=== PATIENT | female | born 1935 | race Caucasian/White ===

== ENCOUNTER 2017-12-08 22:44 | Observation (INO) | payer MEDICARE, OTHER ==
[~2017-12-08] VITALS: Ht 157.5 cm; Wt 122.3 kg
[~2017-12-08 22:44] MED LIST: ALDACTONE25 MG PO; ASPIRIN EC81 MG PO; BENADRYL25 MG PO; CEFEPIME HCL2 GM INJ; CIPROFLOXACIN500 MG PO; CITALOPRAM HBR20 MG PO; COZAAR25 MG PO; COZAAR50 MG PO; DIFLUCAN150 MG PO; DILAUDID2 MG IM; DOCUSATE SODIU100 MG PO; DOXYCYCLINE HY100 MG PO; DULCOLAX5 MG PO; FENTANYL1 EACH TD; FLEET ENEMA133 ML PR; FUROSEMIDE40 MG PO; GABAPENTIN100 MG PO; GABAPENTIN300 MG PO; HIPREX1 GM PO; HYDROCODON-ACE1 EA10 PO; HYDROCODON-ACE1 EAC8 PO; INVANZ1 GM IV; IPRATROPIUM BRO15 ML NAS; KEFLEX500 MG PO; KLOR-CON 1010 MEQ PO; LANTUS SOL100 UNIT/1 SQ; LANTUS SOL100 UNIT/1 SUB-Q; LEVOTHYROXINE75 MCG PO; LORAZEPAM1 MG PO; LOSARTAN POTASS25 MG PO; METFORMIN HCL500 M1 PO; METFORMIN HCL500 MG PO; MILK OF MA400 MG/5 M PO; MULTIVITAMINS1 EAC7 PO; NORCO 5-325 TA1 EACH PO; NORVASC10 MG PO; NOVOLIN R100 UNIT/1 SUB-Q; NYSTATIN100000 UN1 PO; NYSTOP60 GM TOP; OMEPRAZOLE40 MG PO; OXYCODONE HCL5 MG PO; OXYCODONE-ACET1 EAC3 PO; OXYCONTIN10 MG PO; PERCOCET 5-3251 EACH PO; SPIRONOLACTONE25 MG PO; SPIRONOLACTONE50 MG PO; VENLAFAXINE HC150 MG PO; [UNRECOGNIZED DRUG - OTHER] VI
--- NOTE | 2017-12-09 01:38 | NUR ---
ADMIT TO CCU PER STRETCHER, ABLE TO STAND AND PIVOT FROM STRETCHER TO BED. RESP SL LABORED BUT IS ABLE TO SPEAK IN LONG SENTENCES. DOES HAVE PUFFING SOUND AFTERWARD. SATS, 91-93% ON RA AT REST. STATES FORGOT TO TAKE AM MEDS WHICH INCLUDE LASIX AND AMLODIPINE, AMONG OTHERS, STATES SHE TOOK HER PM MEDS. DOES HAVE POOR MEMORY AND DIDN'T REMEMBER WAS ON A BP MED. DID STATE SHE WAS GOING TO TALK WITH ABOUT HER MEDICATION MANAGEMENT SO THIS DOES NOT HAPPEN AGAIN. IS COMFORTABLE AT THIS TIME.
--- NOTE | 2017-12-09 02:19 | NUR ---
PT UP TO BSC TO VOID 500ML. ASSISTED WITH PERICARE. PT WITH RED PAINFUL AREAS IN PANNUS AND GROIN. PLACED NYSTATIN POWDER. PT THANKFUL.
--- NOTE | 2017-12-09 03:22 | NUR ---
UP TO BSC TO VOID. STATES BREATHING IS BETTER.
--- NOTE | 2017-12-09 05:20 | NUR ---
UP TO BSC TO VOID. LESS SOB WITH EXERTION AND STATES BREATHING IS EASIER. EDEMA IS IMPROVING IN FEET.
--- NOTE | 2017-12-09 06:56 | NUR ---
SLEEPING AT THIS TIME.
--- NOTE | 2017-12-09 08:20 | NUR ---
PT UP TO THE BEDSIDE COMMODE, VOIDED THEN UP TO THE CHAIR IN THE ROOM. CURRENTLY WATCHING TV AND BKF ORDED FOR PT. CALL LIGHT WITHIN REACH
--- NOTE | 2017-12-09 09:31 | NUR ---
DR SMITH INTO SEE PT THIS AM. NEW ORDERS RECEIVED. PT FINISHED HER BKF AND AM MEDICATIONS GIVEN AT THIS TIME. PT TALKED ON THE PHONE TO FAMILY.
--- NOTE | 2017-12-09 10:15 | NUR ---
PT BACK TO BED AFTER BEING ON THE BEDSIDE COMMODE. VOIDED CLEAR IN COLOR URINE. BACK TO BED "I WANT TO TAKE A NAP, I HAVE BEEN UP ALL NIGHT".
--- NOTE | 2017-12-09 11:07 | NUR ---
PT IN BED SLEEPING AT THIS TIME, SIDE RAILS X4 CALL LIGHT WITHIN REACH AND BED IN THE LOWEST POSITION.
--- NOTE | 2017-12-09 12:33 | NUR ---
PT AWAKEN AT THIS TIME, UP TO THE BS COMMODE AND THEN TO THE CHAIR FOR LUNCH. PT DOING WELL WITH AMBULATION, IT APPEARS THE PT IS SOB WITH THIS ACTIVITY. BUT PATIENTS FIO2 REMAINS 93% ON ROOM AIR. WILL HAVE RT WORK WITH US WHEN PT AMBULATES TO THE SHOWER IN ROOM 126.
--- NOTE | 2017-12-09 13:15 | NUR ---
PT WAS UP TO AMBULATE TO SEE HOW HER FIO2 HANDLE AMBULATION. FAMILY CAME AT THIS TIME ALSO. PT AMBULATED TO ROOM 130 AND BACK VERY SOB BUT FIO2 REMAINED IN THE LOW 90'S BUT THE HEART RATE INCREASED TO THE LOW 90'S. PT FELT VERY SOB, WITH WHEEZING. SHE HAD TO REST ON THE WAY BACK TO HER ROOM. SHE STOPED AT ROOM 129. PT WENT BACK TO THE CHAIR IN HER ROOM TO VISIT WITH FAMILY.
--- NOTE | 2017-12-09 14:14 | NUR ---
TALKED WITH [id number] IN THE ROOM WITH PT AND EXPLAINED THAT IT IS NOT A LUNG ISSUE BUT MORE OF A HEART ISSUE WITH HER AMBULATION. EXPLAINED THAT SHE IS VERY DECONDITIONED AT THIS TIME. EXPLAINED THAT THIS HEAVY MACHINERY OPERATOR WILL LET DR SMITH KNOW HOW SHE DID AND RT WILL LET HIM KNOW ALSO.
--- NOTE | 2017-12-09 15:22 | NUR ---
PT AMBULATED TO ROOM 126 SHOWER AT THIS TIME, DID WELL WITH THIS ACTIVITY. THEN AMBULATED BACK TO HER ROOM AFTER THE SHOWER. PT ABD PANIS HAS VERY STRONG ODOR AND UNDER THE PANIS IS VERY BRIGHT RED. THIS AREA DRYED WELL AND THEN NYSTATIN POWER PLACED ORDERED.
--- NOTE | 2017-12-09 15:34 | NUR ---
FAMILY INTO SEE PT AT THIS TIME. PT BACK IN BED TALKING WITH FAMILY. DINNER ORDER TAKEN
--- NOTE | 2017-12-09 17:20 | NUR ---
PT REMAINS IN BED AT THIS TIME WATCHING THE OLYMPICS AT THIS TIME AND AT TIMES SHE IS NAPPING.
--- NOTE | 2017-12-09 17:46 | NUR ---
PT UP TO THE BEDSIDE COMMODE VOID THEN UP TO THE CHAIR FOR HER DINNER. PT CONTIOUES TO HAVE WHEEZING WITH ACTIVITY, BUT FIO2 REMAINS ABOVE 90%. PT IS CURRENTLY ENJOYING DINNER AND CONTIOUES TO WATCH THE OLYMPICS.
--- NOTE | 2017-12-09 18:28 | NUR ---
PT REMAINS UP IN THE CHAIR AT THIS TIME. FINISHED DINNER AND WATCHING TV.
--- NOTE | 2017-12-09 20:04 | NUR ---
RESTING IN BED, NO C/O.
--- NOTE | 2017-12-09 22:39 | NUR ---
IV DC'D EARLIER IN SHIFT, [address] [place] [employer] LAW CLERK ATTEMPTED IV START, [employer] [employer] LAW CLERK SUCCESSFUL IN LEFT HAND WITH A 24 GAUGE. PT ASSISTED TO THE BSC. INCREASE SOB ON EXERTION WITH SATS IN THE MID 80'S ON EXERTION. ONCE BACK TO BED, SATS INCREASED TO 92-94. PANNIS WITH REDDNESS, WIPED, DRIED AND APPLIED NYSTAT POWDER, AND CLOTHS UNDER FOLDS TO PREVENT SKIN TO SKIN. CALL LIGHT WITHIN REACH, DENIES NEEDS AT THIS TIME.
--- NOTE | 2017-12-10 00:01 | EKG ---
[facility] [address] [facility] [address] [address] [place] [address] Signed Normal sinus rhythm Left axis deviation Septal infarct , age undetermined Possible Lateral infarct , age undetermined Inferior infarct , age undetermined Abnormal ECG No previous ECGs available Confirmed by АННА SMITH MD ([id number]) on 12/10/2017 12:01:33 AM Electronically Signed By: АННА SMITH MD 12/10/17 0001 PATIENT NAME: ABEL PANDA Electrocardiogram DATE OF : 33 PHYSICIAN: АННА SMITH MD REPORT #: [id number] REPORT IS CONFIDENTIAL AND NOT TO BE RELEASED WITHOUT AUTHORIZATION
--- NOTE | 2017-12-10 00:15 | NUR ---
DR SMITH CALLED RE ELEVATED BP. ORDER RECIEVED. PT HAD ASKED IF SHE HAD RECIEVED HER OXYCODONE EARLIER FOR LEGS, HAD NOT. STATED CAN'T KEEP LEGS STILL AND RATES DISCOMFORT 05/31. OXYCODONE 5MG PO GIVEN.
--- NOTE | 2017-12-10 00:40 | NUR ---
WATCHING TV. GIVEN LABETOLOL 100MG PO.
--- NOTE | 2017-12-10 02:40 | NUR ---
SLEEPING OFF AND ON. NO CHANGE.
--- NOTE | 2017-12-10 03:50 | NUR ---
AWAKE, STATES CAN'T SLEEP, HAD TOLD ME LAST NIGHT THAT SHE DOESN'T SLEEP WELL AT HOME. NO SPEC C/O. DIFFICULTY FLUSHING IV, DRSG REDRESSED AND HAS SL KINK AT ENTRY SITE. FLUSHED AND REDRESSED. GIVEN WARM BLANKET. PT ENCOURAGED WHEN INFORMED SHE HAD LOST WEIGHT.
--- NOTE | 2017-12-10 06:30 | NUR ---
WOKE PT UP TO USE THE BATHROOM. SOB ON EXERTION, ASSISTED TO BED, PT ABLE TO PUT HER LEGS INTO BED. CALL LIGHT WITHIN REACH. DENIES NEEDS AT THIS TIME.
--- NOTE | 2017-12-10 06:37 | NUR ---
ADDENDUM, SATS DID DEC TO 87% WITH ACIVITY, BACK TO92% WITHIN MINUTES. FELL BACK TO SLEEP QUICKLY. AWAKENED FOR MED AND THEN BACK TO SLEEP. PT HAD TOLD ME EARLIER THAT SHE FREQ STAYS UP MUCH OF NIGHT AND THEN FALLS TO SLEEP IN THE AM.
--- NOTE | 2017-12-10 07:43 | NUR ---
PATIENT AWAKE UPON INITIAL ASSESSMENT, LYING IN BED. PT STATES SHE IS "SLEEPY" BUT OVERALL FEELING OKAY. VITALS AND ASSESSMENT DONE AT THIS TIME.
--- NOTE | 2017-12-10 09:56 | NUR ---
CARDIOVASCULAR LAB DIRECTOR IN ROOM PERFORMING ECHO. PT 1 PERSON ASSIST BACK TO BED WITH CARDIOVASCULAR LAB DIRECTOR. HEART RATE REMAINS IN THE 50s. CONTINUE TO MONITOR.
[2017-12-10] MEDS ORDERED: COZAAR50 MG PO (10:19)
[2017-12-10] MEDS ORDERED: LABETALOL HCL100 MG PO (10:21)
--- NOTE | 2017-12-10 11:02 | NUR ---
PATIENT GIVEN BED BATH. PT HAS LARGE AMOUNTS OF FOUL SMELLING YEAST LIKE SUBSTANCE BETWEEN HER FOLDS. PT CLEANED WELL UNDER PANNUS AND FOLDS, AND THEN NYSTATIN POWDER RE-APPLIED. PT WAITING ON HER AND DAUGHTER TO ARRIVE FOR HER CLEAN CLOTHING, AND FOR DISCHARGE INSTRUCTIONS. PT AMBULATES TO BATHROOM AND HAS A LARGE BM. PT NOW RESTING IN CHAIR AT THIS TIME.
[2017-12-10] MEDS ORDERED: NYSTOP60 GM TOP (11:04)
--- NOTE | 2017-12-10 11:36 | NUR ---
PT SITTING IN CHAIR, PLEASANT AND ALERT. SHE MENTIONED THAT SHE IS MUCH IMPROVED, AND HOPES TO BE DC'D TODAY. EXTENDED A BLESSING AND WILL FOLLOW NEEDED
--- NOTE | 2017-12-12 11:01 | NUR ---
12/12/17 Home visit with patient, Geo, and daughter Sarah. Provided patient with current list of providers in our [place] area who are accepting new patient's. Discussed possibly Dr. Mtz as he was the attending hospitalist while patient was in hospital and she really liked him. Chelsea also looked at possibly Dr. Goldstein as an option. She did not want Dr. Skaggs. Chelsea and Geo will review list for a few days and make a decision then for new PCP as current PCP Dr. Up is retiring in March. At that point I will get her and Geo an IWONA to sign and start the process. Also discussed Medication reminder system. Currently patient's Geo is giving Chelsea her medications twice daily but no reminder system in place. I gave patient a weekly qd medication box to prefill that distinguished a.m medications and p.m. medications. Also suggested some type of alarm system to help as a reminder to take medications and at regular times each day. Chelsea has a F/U appointment with Dr. Up on 12/18 and suggested that she ask if she should be taking medications before she eats or after. Patient stated she had never considered asking that question but will at her next appointment. I did offer to met her at her next appointment if she would like. She will let me know if that is something she is interested in.
--- NOTE | 2017-12-17 14:42 | NUR ---
Rec'd phone call from patient's Geo who stated him and Chelsea would like to see if Dr. Mtz would accept them as new patient's once Dr. Up retires in March. Presented them with a IWONA which they signed. I took a copy of the IWONA and mailed it to them and turned in the signed IWONA to [facility] for the disclosure of health information.
== END 2017-12-10 12:00 | disposition home or self-care (01) ==
LOC: ED 22:44 → CCU 22:46
PROVIDERS: ADMIT Internal Medicine
DX: I16.1 Hypertensive emergency (principal); I13.0 Hypertensive heart and chronic kidney disease with heart failure and stage 1 through stage 4 chronic kidney disease, or unspecified chronic kidney disease; N18.3 Chronic kidney disease, stage 3 (moderate); I50.32 Chronic diastolic (congestive) heart failure; E11.22 Type 2 diabetes mellitus with diabetic chronic kidney disease; E03.9 Hypothyroidism, unspecified; E66.9 Obesity, unspecified; F39 Unspecified mood [affective] disorder; G89.4 Chronic pain syndrome; F11.20 Opioid dependence, uncomplicated; Z68.43 Body mass index [BMI] 50.0-59.9, adult; Z88.2 Allergy status to sulfonamides; Z79.84 Long term (current) use of oral hypoglycemic drugs; Z79.82 Long term (current) use of aspirin; Z79.899 Other long term (current) drug therapy
CPT/HCPCS: 71045; 80053; 83735; 83880; 84484; 85025; 93005; 93010; 93306; 96372; 96374; 96375; 99285; G0378; J1650

== ENCOUNTER 2017-12-23 12:00 | Emergency (ER) | payer MEDICARE, OTHER ==
[~2017-12-23] VITALS: Ht 157.5 cm; Wt 127.5 kg
[~2017-12-23 12:00] MED LIST changes: +LABETALOL HCL100 MG PO
--- NOTE | 2017-12-23 14:38 | EKG ---
[facility] [address] [place] [address] Signed Sinus bradycardia Left axis deviation Inferior infarct (cited on or before 08-DEC-2017) Anterolateral infarct (cited on or before 08-DEC-2017) Abnormal ECG When compared with ECG of 08-DEC-2017 23:06, QRS duration has increased Questionable change in initial forces of Lateral leads Non-specific change in ST segment in Lateral leads Confirmed by АННА SMITH MD ([id number]) on 12/23/2017 2:37:47 PM Electronically Signed By: АННА SMITH MD 12/23/17 1438 PATIENT NAME: ABEL PANDA Electrocardiogram DATE OF : 33 PHYSICIAN: АННА SMITH MD REPORT #: [id number] REPORT IS CONFIDENTIAL AND NOT TO BE RELEASED WITHOUT AUTHORIZATION
== END 2017-12-23 15:52 | disposition short-term general hospital (02) ==
LOC: ED 12:00
DX: I21.4 Non-ST elevation (NSTEMI) myocardial infarction (principal); I11.0 Hypertensive heart disease with heart failure; I50.9 Heart failure, unspecified; E11.9 Type 2 diabetes mellitus without complications; E66.9 Obesity, unspecified; E03.9 Hypothyroidism, unspecified; F32.9 Major depressive disorder, single episode, unspecified; F41.9 Anxiety disorder, unspecified; Z88.2 Allergy status to sulfonamides; Z79.899 Other long term (current) drug therapy
CPT/HCPCS: 71045; 80053; 83735; 83880; 84484; 85025; 85379; 93005; 93010; 96372; 96374; 99285; J1650

== ENCOUNTER 2018-01-23 10:46 | Emergency (ER) | payer MEDICARE, OTHER ==
[~2018-01-23] VITALS: Ht 157.5 cm; Wt 126.5 kg
[2018-01-23] MEDS ORDERED: ASPIRIN81 MG PO (11:08)
[2018-01-23] MEDS ORDERED: PREDNISONE20 MG PO (14:30)
--- NOTE | 2018-01-24 16:49 | EKG ---
[facility] [address] [facility] [place] [address] Signed Sinus bradycardia with 1st degree AV block Left axis deviation Inferior infarct (cited on or before 08-DEC-2017) Anterolateral infarct (cited on or before 08-DEC-2017) Abnormal ECG When compared with ECG of 23-DEC-2017 12:14, Questionable change in initial forces of Inferior leads No significant change was found Confirmed by АННА SMITH MD ([id number]) on 01/24/2018 4:49:25 PM Electronically Signed By: АННА SMITH MD 01/24/18 1649 PATIENT NAME: ABEL PANDA Electrocardiogram DATE OF : 33 PHYSICIAN: АННА SMITH MD REPORT #: [id number] REPORT IS CONFIDENTIAL AND NOT TO BE RELEASED WITHOUT AUTHORIZATION
== END 2018-01-23 14:45 | disposition home or self-care (01) ==
LOC: ED 10:46
DX: J44.1 Chronic obstructive pulmonary disease with (acute) exacerbation (principal); I11.0 Hypertensive heart disease with heart failure; I50.9 Heart failure, unspecified; E11.9 Type 2 diabetes mellitus without complications; E03.9 Hypothyroidism, unspecified; F41.9 Anxiety disorder, unspecified; F32.9 Major depressive disorder, single episode, unspecified; E66.9 Obesity, unspecified; Z88.2 Allergy status to sulfonamides; Z79.899 Other long term (current) drug therapy; Z79.82 Long term (current) use of aspirin
CPT/HCPCS: 36415; 71046; 80053; 81001; 83605; 83880; 84484; 85025; 93005; 93010; 94640; 96374; 99283; J2930

== ENCOUNTER 2018-07-05 16:46 | Emergency (ER) | payer MEDICARE, OTHER ==
[~2018-07-05] VITALS: Ht 157.5 cm; Wt 113.4 kg
[~2018-07-05 16:46] MED LIST changes: +ASPIRIN81 MG PO; +PREDNISONE20 MG PO
[2018-07-05] MEDS ORDERED: DIFLUCAN150 MG PO (17:44)
== END 2018-07-05 17:50 | disposition home or self-care (01) ==
LOC: ED 16:46
DX: B37.2 Candidiasis of skin and nail (principal); L30.9 Dermatitis, unspecified; I10 Essential (primary) hypertension; E11.9 Type 2 diabetes mellitus without complications; Z88.2 Allergy status to sulfonamides; Z79.899 Other long term (current) drug therapy
CPT/HCPCS: 99283

== ENCOUNTER 2018-10-27 13:01 | Inpatient (IN) | payer MEDICARE, OTHER ==
[~2018-10-27] VITALS: Ht 157.5 cm; Wt 109.9 kg
[~2018-10-27 13:01] MED LIST changes: +ALLEGRA ALLERG180 MG PO; +METHYLPREDNISOLO4 M1 PO
--- NOTE | 2018-10-27 13:25 | NUR ---
PT ARRIVED TO FLOOR VIA WHEEL CHAIR. IV STARTED IN LEFT HAND. LABS DRAWN STANDING WEIGHT WAS 245.8. ASSESSMENT DONE. LUNGS CLEAR WITH SMALL AMOUNT OF FINE CRACKLE IN RLL. HEART SOUNDS REGULAR. LEGS KRIS IN COLOR, TAUGHT, AND WHEEPING. +2 PITTING EDEMA. VSS.
[2018-10-27] MEDS ORDERED: FUROSEMIDE80 MG PO (14:42)
[2018-10-27] MEDS ORDERED: LEVOTHYROXINE150 MCG PO (14:44)
[2018-10-27] MEDS ORDERED: LOSARTAN POTASS50 MG PO (14:45)
[2018-10-27] MEDS ORDERED: REPAGLINIDE2 MG PO (14:48)
[2018-10-27] MEDS ORDERED: NORCO 5-325 TA1 EACH PO (14:49)
[2018-10-27] MEDS ORDERED: GLIPIZIDE10 MG PO (14:50)
[2018-10-27] MEDS ORDERED: LANTUS SOL100 UNIT/1 SUB-Q (14:53)
[2018-10-27] MEDS ORDERED: LIDOCAINE-PRILO30 GM TOP (14:57)
--- NOTE | 2018-10-27 15:01 | NUR ---
MED REC COMPLETE WITH PATIENT'S OWN MEDICATIONS AND [facility] REFILL HISTORY. PATIENT WAS TAKING METOLAZONE 5 MG DAILY ALSO, BUT DOES NOT HAVE IT WITH HER CURRENT MEDICATIONS.
--- NOTE | 2018-10-27 15:30 | NUR ---
RECIEVED REPORT FROM CORNELL LANE. DOMINGO WILL PLACE CAPUTO PRIOR TO LEAVING FLOOR. IMAGING ON FLOOR WAITING FOR X-RAY.
--- NOTE | 2018-10-27 15:58 | NUR ---
16FR FOELY PLACED. 550 ML OUT. PT HAD SOME PAIN WITH PLACEMENT D/T EXCORIATIONS IN THE DAVID AREA.
--- NOTE | 2018-10-27 16:22 | NUR ---
DR SMITH ASKED ABOUT XRAY. RN CALLED IMAGING ON [facility], HE IS BACKED UP IN THE ER AND WILL COME UP SOON POSSIBLE. CALLED CCU TO ADVISE DR SMITH. HE WAS UNAVAILABLE. CORNELL KRISHNAMURTHY WILL PASS ALONG MESSAGE.
--- NOTE | 2018-10-27 16:49 | NUR ---
pt off floor for xray. will resume tele when she returns.
--- NOTE | 2018-10-27 17:40 | NUR ---
CHF TEACHING COMPLETE. PT NODDED HER HEAD THAT SHE UNDERSTANDS. SHE SHOOK HER HEAD NO THAT SHE DID NOT HAVE QUESTIONS.
--- NOTE | 2018-10-27 21:25 | NUR ---
UP IN CHAIR, BACK TO BED WITH 2 PERSON ASSIST, SLOW UNSTEADY GAIT. BACK TO BED, NO SOB NOTED WITH EXERTION. DROWSY BUT AWAKENS EASILY. CONTINUES ON FLUIDS RESTRICTION OF 1600, F/C PATENT DRAINING YELLOW URINE. TELE#[address] SL INTAACT/PATENT L HAND. EDEMATOUS FROM MID ABDOMEN TO TOES. NYSTATIN POWDER AND LOTIONS APPLIED TO UNDER BREAST, PANNUS AND DAVID AREA. PROCEDURE EXPLAINED, COOPERATIVE
--- NOTE | 2018-10-28 02:23 | NUR ---
RESTING, EYES CLOSED, ON ROOM AIR, TELE#[address], SR READING, F/C PATENT, LEGS ELEVATED
--- NOTE | 2018-10-28 05:01 | NUR ---
PT CURRENTLY AWAKE,TODAY'S WEIGHT IS 254.7#. STANDING SCALE. CONTINUES TO HAVE FLAT AFFECT. SLOW RESPONSE TO QUESTIONS. 2-3 PERSON ASSIST WITH TRANSFERS. EDEMATOUS BELOW ABD TO FEET. NYSTATIN POWDER APPLIED TO REDNESS UNDER BREASTS AND PANUS. F/C PATENT DRAINING CLOUDY YELLOW URINE. LOWER LEGS WITH RED AND OPEN AREAS ELEVATED, SMALL AMOUNT OF SEROUS DRAINAGE FROM R LEG PRESENT. C/O RESTLESS LEG , REPOSITIONED, HEEL PROTECTORS APPLIED
--- NOTE | 2018-10-28 07:14 | NUR ---
RECIEVED BEDSIDE REPORT FROM CORNELL MCKINNON. PT C/O PAIN IN LEGS OVERNIGHT, ORDER FOR TYLENOL RECIEVED OVERNIGHT. CREAM APPLIED TO LEGS FOR COOLING EFFECT. LEGS ELEVATED. RED PANUS, WITH PILLOWCASE IN FOLDS TO CONTROL MOSITURE. BED ALARM ON, HEAVY 2PA.
--- NOTE | 2018-10-28 10:00 | NUR ---
SPOKE WITH PATIENT IN ROOM. PATIENT UP IN CHAIR. PATIENT HAS SOME SOB WITH CONVERSATION. PATIENT LIVES WITH AT HOME, NO STAIRS. USES A 4WW WITH SEAT. PATIENTS HAS HEALTH ISSUES, ALSO. THEY HAVE A CAREGIVER WHO COMES IN FOR A COUPLE HOURS SEVERAL TIMES A WEEK. THEY ARE SCHEDULED FOR A REASSESSMENT THROUGH [facility] BUT IS UNSURE WHEN THAT IS HAPPENING. PATIENT WISHES TO RETURN HOME WITH . PATIENT HAS OXYGEN AT HOME, USES WHEN SHE "NEEDS IT". THEY HAVE SUPPORTIVE ADULT CHILDREN IN AREA. AGREES TO CHW REFERRAL. WILL CONTINUE TO FOLLOW FOR DISCHARGE NEEDS.
--- NOTE | 2018-10-28 10:30 | NUR ---
PT BACK IN BED FOR HER ECHO. PT REQUESTED TO ROLL ONTO HER SIDE, ASSITED HER ONTO LEFT SIDE WITH PILLOW BEHIND HER. PT STATED SHE WAS COMFORTABLE. CALL LIGHT IN REACH, WATER IN REACH. PT WOULD LIKE A SHOWER TODAY. IV LASIX GIVEN, 100ML.
--- NOTE | 2018-10-28 13:06 | NUR ---
Certified Heart Failure Nurse Notes: Diagnosis:HEART FAILURE EXACERBATION associated with CKD Dr. Mcdaniel PCP: Dr Mtz Date of echocardiogram -10/28/18 results pending Admit Wt.: 255 lb BMI 47. Admit BNP: 62 Social support system: Lives with spouse reports that he is in poor health. Daughter lives in [place] and works for [employer] system. She states daughter is very helpful, did not give examples. Weight monitoring: Scale present in home and states she can stand on them. Educated given on how to identy fluid weight gain and when to notify PCP. Symptom management: Specific written and verbal recommendations on follow-up for ongoing management, and to address changes in weight or symptoms Transportation mode:not addressed Diet: Usual meals "brought in by other people" . Patient does not cook and states does very little. Patient was not specific about what they eat for meals. Did state she loves cottage cheese. Introductory education on low sodium diet need and hidden salt. Usual physical activity:Not discussed at this initial meeting Medication routine: Does not have any method to remember medications. Encouraged use of 7 day pill organizer and recruiting assistance of daughter to fill weekly. Has been counseled on minimizing/avoiding use of NSAIDs Tobacco:NA Advanced directive: Not discussed at this initial visit Recommendations prior to discharge: Document ambulation oxygen saturations prior to discharge Absence of orthostatic hypotension. DC weight less than admit. (as per [facility] HF DC Bundle) Follow-up plans: Will discuss home needs with management accountant. Will give patient pill boxes for home use. Post DC follow up call. Teaching materials given: [facility] Heart Failure bundle folder-[facility] My Action Plan Living Well with Heart Failure book, Daily weight and symptom monitoring log, Zones magnet, [facility] contact information Encouraged to read materials prior to DC. She states daughter will be bringing in her glasses.
--- NOTE | 2018-10-28 14:18 | NUR ---
KNOCKED, NO ANSWER-DISCOVERED PT WAS ASLEEP. WILL CHECK BACK AGAIN
--- NOTE | 2018-10-28 14:37 | NUR ---
PREFORMED SKIN CARE TO LEGS AFTER PT'S SHOWER. LOWER LEGS ARE WRINKLED AND MUCH LESS RED. LEGS SCRUBED WITH HIBACLENSE, RINSED, AND DRIED. MUPRICIN OINTMENT APPLIED TO OPEN SORES ON BOTH LEGS. VANICREAM APPLIED TO SKIN AROUND OPEN AREAS. PT HAS FAMILY AT BEDSIDE. WILL TRY TO KEEP PT AWAKE DURING THE DAY TO REST SLEEP CYCLE.
--- NOTE | 2018-10-28 19:05 | NUR ---
BEDSIDE REPORT RECEIVED FROM OFFGOING RN. PT RESTING IN BED WITH EYES CLOSED, PT DOES NOT WAKE WHILE REPORT BEING GIVEN. CALL LIGHT WITHIN REACH.
--- NOTE | 2018-10-28 22:45 | NUR ---
PT ASSESSMENT COMPLETE. PT DENIES PAIN. PT REPORTS SLIGHT SOB, REQUESTS HOB BE ELEVATED, STATES SOB RESOLVED. PT DENIES NAUSEA. PT C/O ITCHING TO CHEST. RED GILBERT PRESENT FROM WHERE PT HAS BEEN ITCHING. LOTION APPLIED TO AREA, COOL WACH CLOTH PROVIDED. PT STATES RELIEF. PT'S LEGS WASHED AND LOTION APPLIED. PT DECLINES TO HAVE SOCKS PUT BACK ON AT THIS TIME. CHUX PAD CONTINUES UNDER PT'S LEGS. NO WEEPING NOTED TO LEGS PRIOR OR AFTER WASHING. GENERALIZED EDEMA TO ALL EXTREMITIES AND LOWER ABD. PT DENIES FURTHER NEEDS AT THIS TIME. CALL LIGHT WITHIN REACH.
--- NOTE | 2018-10-29 00:34 | NUR ---
PT SITTING UP IN THE CHAIR, MOANING. PT STATES THAT SHE NEEDS TO USE THE BATHROOM TO HAVE BM. MACHINE OPERATOR FARMWORKER'S TO PT'S ROOM TO ASSIST PT TO THE BATHROOM. PT DENIES FURTHER NEEDS AT THIS TIME. CALL LIGHT WITHIN REACH.
--- NOTE | 2018-10-29 00:56 | NUR ---
2 PA TO USE THE BEDSIDE COMMODE. PATIENT WAS UP IN THE CHAIR. PATIENT IS BACK IN BED NOW. CALL LIGHT AND SIDE TABLE WITHIN REACH.
--- NOTE | 2018-10-29 04:10 | NUR ---
PT ASSESSMENT COMPLETE. PT WAKES EASILY TO VOICE, LOOKS AROUND. AGREES THAT SHE IS TIRED WHEN ASKED. DENIES PAIN, NAUSEA, SOB. PT FALLS BACK TO SLEEP QUICKLY. ASSESSMENT OTHERWISE UNCHANGED FROM PREVIOUS. CALL LIGHT WITHIN REACH. ROOM IN VIEW OF RN STATION.
--- NOTE | 2018-10-29 06:02 | NUR ---
PT SLEPT WELL THIS SHIFT. NO PAIN OR NAUSEA. SOB X 1, RESOLVED WITH ELEVATING THE HOB. PT C/O ITCHING EARLY IN SHIFT, RESOLVED WITH APPLICATION OF LOTION TO LEGS AND CHEST. LUNG SOUNDS DIM IN BILATERAL BASES. CAPUTO CATH IN PLACE, DRAINING LIGHT YELLOW URINE WITH SLIGHT SEDIMENT NOTED. ALLEVYN FOAM TO R LEG PLACED BY DIRECTOR OF PUBLIC WORKS, WOUND CARE BID PER MD ORDER. EDEMA TO BLE'S GENERALIZED TO 1+. PT/OT. 1600 ML FLUID RESTRICTION. ACCUCHECKS WITH SSI, ADA DIET. IV SL. HEAVY 2 PA WITH FWW.
--- NOTE | 2018-10-29 07:33 | NUR ---
BEDSIDE REPORT RECEIVED FROM SARAH SARABIA.
--- NOTE | 2018-10-29 09:13 | NUR ---
pt lying in bed awake. hard of hearing. nystatin applied under breasts and panus. vanicream applied to bilat lower legs. new allevyn and medihoney to right calf ulcers. practiced incentive spirometer. gave warm wash cloth for face.
--- NOTE | 2018-10-29 11:19 | NUR ---
pt resting with eyes closed in chair. asked if she could go back to bed. encouraged to stay up in chair until after lunch. lasix provided via IV.
--- NOTE | 2018-10-29 13:38 | NUR ---
PT REPORTS BURNING AND INCREASED PAIN IN DAVID AREA AFTER UP WALKING IN HALLS WITH PHYSICAL THERAPY. WHEN THE CAPUTO WAS PLACED ON SUNDAY I WAS AT BEDSIDE TO ASSIST I NOTICED THE DAVID AREA WAS RED THEN. ON ASSESSMENT AT THIS TIME I NOTED PT DEEP DAVID AREA IS RED AND IRRITATED. WILL NOTIFTY
--- NOTE | 2018-10-29 17:39 | NUR ---
2PA FWW. ACCU CHECK. 5 UNITS WITH MEALS AND SS. BILAT LE EDEMA 1+. KEEP AWAKE DURING DAY. CAPUTO. NEED NYSTATIN IN ALL FOLDS. JESSICAREAM TO BILAT LE. BRADLEY AND JUNG ON RIGHT LE STASIS ULCER. REPLACED DRESSING THIS MORNING. PT/OT. C/O NEUROPATHY IN FEET.
--- NOTE | 2018-10-29 20:00 | NUR ---
PATIENT IN BED. NO NEEDS AT THIS TIME. PATIENT IN BED WATCHING TV.
--- NOTE | 2018-10-29 20:41 | NUR ---
V/S AND OUTPUT DONE AND RECORDED. CAPUTO CATH CARE DONE. DENTURE SOAKED IN THE CONTAINER. HEARING AID OFF AND PLACE IN A BLACK CONTAINER. PATIENT IS IN BED. CALL LIGHT AND SIDE TABLE WITHIN REACH.
--- NOTE | 2018-10-29 22:00 | NUR ---
PATIENT'S PMMEDS GIVEN. CREAM APPLIED TO LEGS, NYSTOP UNDER BREASTS AND PANUS AND BETWEEN ALL GROIN FOLDS. PATIENT SAYS SHE HAS 10/10 BILAT LOWER LEG PAIN AND WAS GIVEN 500MG TYLENOL.IV FLUSHES WELL AND WNL. PATIENT READY TO TRY AND SLEEP.
--- NOTE | 2018-10-30 | NUR ---
PATIENT RESTING QUIETLY, EYES CLOSED RESPIRATIONS REGULAR AND EVENAT A RATE OF 18. CALLLIGHT IN REACH.
--- NOTE | 2018-10-30 01:54 | NUR ---
PATIENT CALLED FOR A SNACK AND WAS GIVEN 2 CUPS OF JELLO AT HER REQUEST AND IS WATCHING TV AT THIS TIME.
--- NOTE | 2018-10-30 04:05 | NUR ---
PATIENT RESTING QUIETLY, EYES CLOSED, RESPIRATIONS SHALLOW,BUT EVEN. NO SIGNS OR SYMPTOMS OF DISTRESS. CALL LIGHT IN REACH.
--- NOTE | 2018-10-30 06:30 | NUR ---
PATIENT RESTED WELL MOST OF THE NIGHT, EYES CLOSED, RESPIRATIONS EVEN AND REGULAR. SHE DID HAVE TYLENOL AT PM MED TIME FOR SOME LEG PAIN 07/31, BUT THAT SEEMED TO RELIEVE THE PAIN UNTIL A FEW MINUTES AGO WHEN SHE CALLED AND THE PAIN WAS BACK ALL OF A SUDDEN 07/31 AND ANOTHER TYLENOL 500MG PO WAS GIVEN ALONG WITH HER MORNING MEDS. PATIENT IS GOING TO GIVE THAT SOME TIME TO WORK.
--- NOTE | 2018-10-30 07:44 | NUR ---
BEDSIDE REPORT RECEIVED FROM MARIAN SARABIA. PATIENT SLEEPING IN BED. ACCU CHECK TO BE DONE BY KENNY MAXWELL. SALINE LOCKED. TYLENOL GIVEN AT 0630 FOR LEG PAIN. PLAN TO GET UP TO CHAIR FOR MEALS.
--- NOTE | 2018-10-30 08:24 | NUR ---
BLOOD SUGAR TAKEN AND DOCUMENTED. PT AMBULATED TO THE CHAIR. ALISSA RICK, ASSISTED WITH TRANSFERING THE PT. COFFEE, A WARM BLANKET, AND FRESH ICE WATER GIVEN. INFORMED PT TO CALL IF SHE NEEDS ANYTHING. RN NOTIFIED OF BS.
--- NOTE | 2018-10-30 09:53 | NUR ---
PT BACK TO CHAIR FROM THE BATHROOM. SHOWER AND MORNING AM CARE DONE. PT HAD A LG BOWEL MOVEMENT THAT HAD SOME BLOOD IN IT. HARPREET RN, INFORMED. VS AND I&O'S TAKEN AND DOCUMENTED. PT GIVEN BLANKET FROM WARMER. PT HAS NO OTHER NEEDS AT THIS TIME. INFORMED PT TO CALL IF SHE THINKS OF ANYTHING SHE NEEDS. CALL LIGHT IS IN REACH.
--- NOTE | 2018-10-30 11:10 | NUR ---
Heart failure review visit. Patient is pleasant and sitting up in chair. Reports that she has decided to transfer to [place] and would like to transfer by personal car. She does not have recall of symptoms to report or need for daily weight. Symptoms reviewed and patient encouraged to share education book with family and caregivers. [facility] CHW will follow up with patient at care facility. Screenings completed today and will be sent to PCP- PHQ-9 Total score 15 (indicative of possible moderately severe depression) Mini-Cog score 4 (a cut point of <3 on the Mini-Cog has been validated for dementia screening)
--- NOTE | 2018-10-30 11:49 | NUR ---
BLOOD SUGAR TAKEN AND DOCUMENTED. WILL INFORM RN OF HIGH READING. PT HAS NO NEEDS AT THIS TIME. CALL LIGHT IS IN REACH.
--- NOTE | 2018-10-30 13:27 | NUR ---
PT SITTING IN CHAIR, AWAKE AND CLUTCHING A CUP OF COFFEE. PT SATATED THAT SHE DIDN'T SLEEP VERY GOOD LAST AND WOULD REALLY LIKE A NAP. CARDIO RN ARJUN CAME IN AND REQUESTED I CONTINUE TO FOLLOW UP WITH PT-SHE SEEMS DEPRESSED TODAY. I COMMITTED TO CHECKING ON PT AGAIN. WILL FOLLOW NEEDED
--- NOTE | 2018-10-30 16:03 | NUR ---
PT REPORTING 10/10 PAIN, SHEDULED GABAPENTIN AND PRN TYLENOL ADMINISTERED.
--- NOTE | 2018-10-30 20:00 | NUR ---
PATIENT RESTING QUIETLY IN BED WATCHING TV AT THIS TIME. NO CURRENT NEEDS OR COMPLAINTS OF PAIN, CALL LIGHT IN REACH.
--- NOTE | 2018-10-30 20:27 | NUR ---
ROUNDED CHARGE. PATIENT ASSISTED BACK TO [place] [facility] [place]IENT IS A 1PA PIVOT TRANSFER. ASSISTED SOFTWARE BUSINESS ANALYST. PATIENT IS BACK IN BED RESTING. PATIENT DENIES ANY NEEDS AT THIS TIME. CALL LIGHT IN REACH. PATIENT WAS ABLE TO VOID.
--- NOTE | 2018-10-30 22:00 | NUR ---
PATIENT ASSESSMENT DONE. PATIENT STARTED TO HAVE 10/10 LEG PAIN JUST BEFORE 2100, BUT AFTER LEG CREAM WAS APPLIED AND NEURONTIN AND TYLENOL GIVEN PATIENT IS NOT HAVING ANY PAIN AT THIS TIME AND IS RESTING QUIETLY, BUT DID REQUEST 2 CUPS OF RED DIABETIC JELLO WHICH WERE GIVEN.
--- NOTE | 2018-10-31 00:15 | NUR ---
PATIENT RESTING QUIETLY WATCHING TV. PATIENT HAS NO NEEDS AT THIS TIME.
--- NOTE | 2018-10-31 02:50 | NUR ---
PATIENT RESTING QUIETLY WITH EYES CLOSED UNTIL ASSESSMENT. PATIENT HAS NO C/O PAIN AT THIS TIME. CALL LIGHT IN REACH AND HAS NO CURRENT NEEDS.
--- NOTE | 2018-10-31 05:24 | NUR ---
PATIENT HAS RESTED ON AND OFF THROUGH THE NIGHT, HAS BEEN UP TO THE BED SIDE COMODE TO URINATE AFTER HER CAPUTO HAS BEEN OUT. PATIENT HAD SOME PAIN AROUND EVENING MED PASS, BUT IT WAS RELIEVED WITH TYLENOL AND HER GABAPENTIN. PATIENT VS HAVE BEEN STABLE AND SHE IS NOT IN NEED OF ANYTHING AT THIS TIME.
--- NOTE | 2018-10-31 06:21 | NUR ---
PATIENT NOW UP IN THE CHAIR RESTING QUIETLY AND HAS HAD HER AM MEDS AND NO C/O PAIN.
--- NOTE | 2018-10-31 07:15 | NUR ---
HAND OFF REPORT RECEIVED FROM CORNELL FONSECA. PT UP TO CHAIR. PT REPORTS 7/10 PAIN IN HER LOWER LEGS. PT REFUESE TYLENOL AT THIS TIME. PT DENIES ADDITIONAL REQUESTS OR COMPLAINTS. CALL LIGHT WITHIN REACH.
--- NOTE | 2018-10-31 08:46 | NUR ---
MORNING ASSESSMENT AND MEDICATION DUE. PT UP TO BREAKFAST AND FINISHED WITH BREAKFAST. PT REPORTS 7/10 PAIN, AGREES TO TAKE TYLENOL WITH GABAPENTIN. ASSESSMENT DONE, PT REPORTS NUMBNESS AND TINGLING IN HANDS THAT "HAS BEEN THERE FOR A WEEK OR SO" BUT IS OTHERWISE NEW. PT STATES "I GUESS ITS FROM MY DIABETES GETTING WORSE." DRESSING ON RLE IS CDI AT THIS TIME. CREAM APPLIED TO BILATERAL LOWER EXTREMITIES. NYSTATIN APPLIED UNDER PANNUS AND BREASTS. DEPENDSIN PLACE, DRY AT THIS TIME. PT ASSITED BACK TO BED, 2PA WITH FWW. PT TOELRATES WELL. PT ENCOURAGED TO USE INCENTIVE SPIROMETER AND REACHES 750 ON SPIROMETER. MEDICATIONS GIVEN. PT DENIES ADDITIONAL REQUESTS OR COMPLAINTS AT THIS TIME. BED RAILS UP. CALL LIGHT WITHIN REACH.
--- NOTE | 2018-10-31 09:36 | NUR ---
MEDICATION DUE. PT UP WITH PHYSICAL THERAPY, [facility] [place]. PT UP TO CHAIR. MEDICATION GIVEN. PT VERBALIZES UNDERSTANDING OF FALL PRECAUTIONS. PT REPORTS 4/10 PAIN. RT TO BEDSIDE. PT WORKING ON INCENTIVE SPRIOMETER. CALL LIGHT WITHIN REACH. NO ADDITIONAL REQUESTS OR COMPLAINTS AT THIS TIME.
--- NOTE | 2018-10-31 10:10 | NUR ---
PT WAS WITH [facility] OUTSIDE MY OFFICE DOOR-I CHECKED ON THEM. PT REQUESTED I WALK WITH THEM. GAVE ENCOURAGEMENT ALONG THE WAS, SEVERAL TIMES SHE NEEDED TO STOP AND REST. SEVERAL TIMES SHE MENTIONED STAT SHE THANKED ME FOR WALKING WITH HER. WILL FOLLOW NEEDED
--- NOTE | 2018-10-31 11:15 | NUR ---
THIS RN TO ROOM FOR ROUNDS WITH MD. PT UP TO CHAIR AND CONTINUES TO REPORT 4/10 PAIN IN LEGS, PAIN WORSE WITH TOUCH TO RIGHT LEG. DRESSING REMOVED BY MD. WOUND CLEANED WITH WOUND CLEANSER PER MD ORDER. NEW MEDI HONEY AND ALLEVYN APPLIED PER MD ORDER. NOON ASSESSMENT DONE. LUNG SOUNDS CLEAR. PT HAVING DIFFICULTY WITH FLUID RESTRICTION, PT REQUESTING JUICE, ICE CREAM, AND "MORE TO DRINK." EDUCATION DONE WITH PT. PT VERBALIZES UNDERSTANDING AND STATES SHE IS "OK WITH THE WATER I HAVE." DEPENDS DRY AT THIS TIME. CALL LIGHT WITHIN REACH. NO ADDITIONAL REQUESTS OR COMPLAINTS AT THIS TIME.
--- NOTE | 2018-10-31 11:25 | NUR ---
PATIENT REFUSED SHOWER SAYS SHE HAD ONE YESTERDAY AND THAT SHE IS STILL CLEAN.
--- NOTE | 2018-10-31 12:37 | NUR ---
MEDICATION DUE. THIS RN TO BEDSIDE. PT FINISHED WITH LUNCH. MEDICATION GIVEN. PT REPORTS 5/10 PAIN BUT DENIES NEED FOR MEDICATION AT THIS TIME. HEAR FAILURE EDUCATION REVIEWED WITH PT, PT DEMONSTRATES UNDERSTANDING BY STATING SHE IS IN THE "YELLOW" ZONE. PT ASSISTED WITH RECORDING TODAY'S DATE, WEIGHT AND ZONE. PT ENCOUREGED TO CONTINUE USING THIS RECORD SHEET FOR THE REST OF HER HOSPITAL STAY AND AT HOME. PT VERBALIZES UNDERSTANDING. DEPENDS NOTED TO BE SATURATED, DEPENDS CHANGED, DAVID CARE DONE. PT REMAINS UP TO CHAIR. CALL LIGHT WITHIN REACH. NO ADDITIONAL REQUESTS OR COMPLAINTS AT THIS TIME.
--- NOTE | 2018-10-31 12:40 | NUR ---
CHECKED ON PT AFTER HER P.T. SHE WAS SITTING IN CHAIR-EATING LUNCH. CHEERFUL, JOKED ABOUT P.T. WORKING HER OVER! TURNED TV ON FOR PT, EXTENDED A BLESSING. WILL FOLLOW NEEDED
--- NOTE | 2018-10-31 14:10 | NUR ---
THIS RN TO ROOM TO CHECK ON PT. PT RESTING WITH EYES CLOSED, RESPIRATIONS REGULAR RATE AND RHYTHEM. BED RAILS UP. CALL LIGHT WITHIN REACH.
--- NOTE | 2018-10-31 14:42 | NUR ---
MEDICATION DUE. PT STATES PAIN OF 7/10 IN LEGS. SEE MAR FOR MEDICATION GIVEN. PT VISITING WITH DAUGHTER. DAUGHTER UPDATED ON PLAN OF CARE. DAUGHTER VERBALIZES UNDERSTANDING AND STATES HER QUESTIONS HAVE BEEN ANSWERED. BED RAILS UP. PT STATES SHE HAS NO ADDITIONAL REQUESTS OR COMPLAINTS AT THIS TIME. CALL LIGHT WITHIN REACH.
--- NOTE | 2018-10-31 14:45 | NUR ---
TALKED WITH PT AFTER DR SMITH STATES THAT HE IS GOING TO KEEP HER HERE ANOTHER NIGHT. SHE SAID THAT IS OK. I DID ANSWER HER QUESTIONS REGARDING HER GOING TO T, WHERE DOES MY CLOTHES COME FROM, HOW AM I GETTING THERE. TOLD HER HER FAMILY COULD BRING HER CLOTHES AND WE WOULD ARRANGE FOR HER RIDE.
--- NOTE | 2018-10-31 15:54 | NUR ---
BRASS SORTER REPORTS PT IS FINISHED WITH SHOWER BUT DRESSING OVER WOUND "HAS COME OFF." THIS RN TO ROOM. DRESSING CHANGED PER MD ORDER, ROSARIO TODD APPLIED. PT REQUESTS COFFE. COFFE PROVIDED WITHIN FLUID RESTRICTION. CALL LIGHT WITHIN REACH.
--- NOTE | 2018-10-31 16:02 | NUR ---
PATIENT IN CHAIR RESTING WITH LEGS UP. WATER REFRESHED. CALL LIGHT IN REACH. NO FURTHER NEEDS AT THIS TIME.
--- NOTE | 2018-10-31 17:16 | NUR ---
AFTERNOON ASSESSMENT AND MEDICATION DUE. THIS RN TO BEDSIDE. PT RESTING WITH EYES CLOSED IN CHAIR. PT AWAKES TO VOICE AND TOUCH. ASSESSMENT DONE. MEDICATION GIVEN (SEE MAR). PT EATING DINNER. NO ADDITIONAL REQUESTS OR COMPLAINTS AT THIS TIME. CALL LIGHT WITHIN REACH.
--- NOTE | 2018-10-31 19:04 | NUR ---
PT HERE FOR CHF EXACERBATION. PT WITH 1600ML FLUID RESTRICTION BUT HAVING SOME DIFFICULTY WITH ADHERANCE. TOLEARTING ADA/CARDIAC DIET WELL. CBG CHECKS WITH SLIDING SCALE INSULIN GIVEN TODAY, PT NEEDED INSULIN WITH ALL MEALS. PT UP TO AMBULATE IN [place] TODAY WITH PHYSIAL THERAPY. DAILY WEIGHT TAKEN. IV LASIX GIVEN WITH MULTIPLE INCONTINANCE EPISODES. DEPEDNDS IN PLACE, CHANGED FREQUENTLY. SHOWER TODAY. PT USES CALL LIGHT APPROPRIATLY AND IS VERY HARD OF HEARING.
--- NOTE | 2018-10-31 19:09 | NUR ---
IN ROOM FOR REPORT, PT IS AWAKE IN CHAIR. SHE DENIES NEEDS AT THIS TIME. CALL LIGHT IS WITHIN REACH.
--- NOTE | 2018-10-31 19:30 | NUR ---
PER PT REQUEST I GAVE HER A WARM BLANKET.
--- NOTE | 2018-10-31 20:45 | NUR ---
CHARGE NURSE ROUNDING NOTE: UP IN CHAIR, NO C/O PAIN OR DISCOMFORT. DECREASE EDEMA OF LEGS, DECREASE REDNESS ALLEVYN DRESSING R OUTER ANKLE AREA, ON ROOM AIR, CALL LIGHT AND FLUIDS AT BEDSIDE
--- NOTE | 2018-10-31 20:55 | NUR ---
VITALS , I&OS AND BLOOD SUGAR DONE AND CHARTED. HELPED PT TO THE BED FROM THE CHAIR. CHANGED HER ATTENDS INCONTINENT OF URINE. BEDSIDE TABLE AND CALL LIGHT IN REACH.
--- NOTE | 2018-10-31 21:12 | NUR ---
PT COMPLAINS OF LEG PAIN 10/10 AT THIS TIME. TOLD HER WE WOULD HAVE TO TALK TO THE DR. CALLED DR SMITH HE SAID TO GIVE HER THE TYLENOL AND IF SHE IS STILL IN PAIN IN 1 HOUR LET HIM KNOW. ADVISED PT THAT IS ALL SHE CAN HAVE AT THIS TIME ALONG WITH HER SCHEDULED GABAPENTIN. SHE CALMED DOWN SOME AFTER BEING TOLD SHE MAY BE ABLE TO GET IT AN HOUR IF SHE STILL NEEDS IT. THE CNAS HELPED HER TO BED AND CHANGED HER ATTENDS. DRESSING ON RT OUTER LOWER LEG HAS SOME SEROSANGUINOUS DRAINAGE BUT IS INTACT. PT DENIES FURTHER NEEDS AT THIS TIME. CALL LIGHT IS WITHIN REACH.
--- NOTE | 2018-10-31 22:35 | NUR ---
MEDICATED WITH 1 NORCO C/O 07/31 BILAT LE PAIN.
--- NOTE | 2018-10-31 22:52 | NUR ---
ADMINISTERED AN ADDITIONAL 7 UNITS OF LANTUS PER MD ORDERS. PT DENIES NEEDS AT THIS TIME. CALL LIGHT IS CLOSE.
--- NOTE | 2018-10-31 23:51 | NUR ---
PT CALLED WANTING ANOTHER PILLOW AND HER SOCKS OFF. SHE STATES IT HURTS WHEN SHE PEES. TOLD HER WE WOULD MAKE NOTE OF IT AND PASS IT ALONG TO THE DR FOR TOMORROW. SHE DENIES FURTHER NEEDS. CALL LIGHT IS CLOSE.
--- NOTE | 2018-11-01 00:33 | NUR ---
PT IS RESTING WITH EYES CLOSED, RESPIRATIONS ARE EVEN AND NONLABORED. CALL LIGHT IS WITHIN REACH.
--- NOTE | 2018-11-01 01:00 | NUR ---
PER PT REQUEST I PUT LOTION ON HER LEGS. GOT HER SOME LEMON SWABS FOR HER MOUTH. BEDSIDE TABLE AND CALL LIGHT IN REACH.
--- NOTE | 2018-11-01 03:25 | NUR ---
PT IS RESTING WITH EYES CLOSED, RESPIRATIONS ARE EVEN AND NONLABORED. CALL LIGHT IS WITHIN REACH.
--- NOTE | 2018-11-01 04:21 | NUR ---
PT IS AWAKE IN BED, SHE DENIES NEEDS AT THIS TIME. NO COMPLAINTS OF PAIN AND CALL LIGHT IS WITHIN REACH.
--- NOTE | 2018-11-01 06:36 | NUR ---
IN ROOM TO ADMINISTER THYROID MEDICATION. WEIGHED PT AND HELPED HER TO RESTROOM TO BRUSH TEETH. SHE IS IN THE CHAIR AND DENIES FURTHER NEEDS. CALL LIGHT IS CLOSE.
--- NOTE | 2018-11-01 08:00 | NUR ---
RECEIVED REPORT AT 0700, FOUND PT IN CHAIR WATCHING TV. ASSISTED PT TO BATHROOM. PT HAD A BM AND SOME URINE. PT IS MOVING WELL OVERALL, ASSIT [id number].
--- NOTE | 2018-11-01 10:00 | NUR ---
PT AT THIS TIME IS SLEEPING IN CHAIR. NO UA SAMPLE OBTAINED SO FAR. PT REFUSED STRAIGHT CATH. GETTING D/C STARTED.
[2018-11-01] MEDS ORDERED: LOSARTAN POTASS50 MG PO (10:31)
[2018-11-01] MEDS ORDERED: NORCO 5-325 TA1 EACH PO (10:31)
[2018-11-01] MEDS ORDERED: MAPAP500 M1 PO (10:32)
[2018-11-01] MEDS ORDERED: TORSEMIDE20 MG PO (10:32)
[2018-11-01] MEDS ORDERED: NOVOLOG FL100 UNIT/1 SUB-Q ×3 (10:35→10:45)
[2018-11-01] MEDS ORDERED: VANICREAM453 GM TOP (10:38)
--- NOTE | 2018-11-01 11:49 | NUR ---
PT TO BE DC'D TO [facility] TODAY. SHE APPEARS TO HAVE A GOOD ATTITUDE, AND KNOWS IT IS A TIME TO GET STRONGER FOR THE NEXT PHASE OF HER RECOVERY. PT REQUESTED PRAYER, WILL FOLLOW NEEDED
--- NOTE | 2018-12-04 16:46 | NUR ---
Heart Failure RN follow up call attempted. No answer. I LM asking patient to call this services direct line, also to inquire if a home health RN has contacted her. Today Dr. Mtz states he did order home health. Hair Tyson RN HH Coordinator states she does not have this patient under their services and there are not any pending orders. [facility].
== END 2018-11-01 12:11 | DRG 291 ==
LOC: MS 13:01
PROVIDERS: ADMIT Internal Medicine
DX: I13.0 Hypertensive heart and chronic kidney disease with heart failure and stage 1 through stage 4 chronic kidney disease, or unspecified chronic kidney disease (principal); I50.33 Acute on chronic diastolic (congestive) heart failure; N18.4 Chronic kidney disease, stage 4 (severe); E11.42 Type 2 diabetes mellitus with diabetic polyneuropathy; L97.919 Non-pressure chronic ulcer of unspecified part of right lower leg with unspecified severity; Z68.42 Body mass index [BMI] 45.0-49.9, adult; E11.22 Type 2 diabetes mellitus with diabetic chronic kidney disease; E11.65 Type 2 diabetes mellitus with hyperglycemia; I87.2 Venous insufficiency (chronic) (peripheral); E66.01 Morbid (severe) obesity due to excess calories; E03.9 Hypothyroidism, unspecified; Z88.2 Allergy status to sulfonamides; Z79.4 Long term (current) use of insulin; Z79.891 Long term (current) use of opiate analgesic; Z79.899 Other long term (current) drug therapy
CPT/HCPCS: 36415; 71046; 80048; 80053; 80069; 81001; 83880; 84100; 85025; 87077; 87088; 87186; 93306; 97110; 97116; 97162; 97166; 97530; 97535; J1650; J1815

== ENCOUNTER 2019-02-18 19:05 | Emergency (ER) | payer MEDICARE, OTHER ==
[~2019-02-18] VITALS: Ht 157.5 cm; Wt 109.9 kg
--- OUTSIDE RECORDS SUMMARY | ~2019-02-18 | XMS | Encounter Summary ---
Demographics + + + | Address | [address] | | | [place] [address] | + + + | Home Phone | | + + + | Preferred Language | Unknown | + + + | Marital Status | | + + + | Rastafari Affiliation | [id number] | + + + | Race | Unknown | + + + | Ethnic Group | Unknown | + + + Author + + + | Author | [employer] | + + + | Organization | [facility] | + + + | Address | Unknown | + + + | Phone | Unavailable | + + + Support + + +---------+ + | Name | Relationship | Address | Phone | + + +---------+ + | Anika Isaac | ECON | Unknown | | + + +---------+ + | Geo Isaac | ECON | Unknown | | + + +---------+ + Care Team Providers + +------+ + | Care Help Desk Technician Name | Role | Phone | + +------+ + | Flaco Up MD | PCP | | + +------+ + Reason for Visit +--------+ + | Reason | Comments | +--------+ + | Other | Referral from Dr. Lam DO | +--------+ + Encounter Details +--------+ + + + + | Date | Type | Department | Care Team | Description | +--------+ + + + + | 12/04/ | Documentati | [facility] | Robson Kennedy | Other (Referral from | | 2019 | on Only | [place] [address] | [address] | Dr. Lam DO) | | | | [address] | [place] [address] | | | | | [place] [address] | [phone] | | | | | [phone] | | | +--------+ + + + + Social History + +-------+ +--------+------+ | Tobacco Use | Types | Packs/Day | Years | Date | | | | | Used | | + +-------+ +--------+------+ | Never Smoker | | | | | + +-------+ +--------+------+ + + +---------+ + | Alcohol Use | Drinks/We | oz/Week | Comments | | | ek | | | + + +---------+ + | No | | | | + + +---------+ + + + + | Sex Assigned at | Date Recorded | | | | + + + | Not on file | | + + + as of this encounter Plan of Treatment Not on fileas of this encounter Visit Diagnoses Not on filein this encounter"
--- OUTSIDE RECORDS SUMMARY | ~2019-02-18 | XMS | Encounter Summary ---
Demographics + + + | Address | [address] | | | [place] [address] | + + + | Home Phone | | + + + | Preferred Language | Unknown | + + + | Marital Status | | + + + | Congregational Affiliation | 1076 | + + + | Race | Unknown | + + + | Ethnic Group | Unknown | + + + Author + + + | Author | [facility] | | | and [place] | + + + | Organization | [facility] | | | and [place] | + + + | Address | Unknown | + + + | Phone | Unavailable | + + + Support + + +---------+ + | Name | Relationship | Address | Phone | + + +---------+ + | MarlinAnika | ECON | Unknown | | + + +---------+ + Care Team Providers + +------+ + | Care Sas Developer Analyst Name | Role | Phone | + +------+ + | Juan Mtz MD | PCP | | + +------+ + Encounter Details +--------+ + + + + | Date | Type | Department | Care Team | Description | +--------+ + + + + | 12/09/ | Abstract | [facility] [place] | Ghassan Lombardo | | | 2018 | | NEPHROLOGY [address] | M, DO [address] | | | | | [address] | [address] | | | | | [place], [place] | [place], [place] | | | | | [address] | [address] | | | | | [phone] | | | +--------+ + + + [...] on file | | + + + + + + + | Job Start Date | Occupation | Industry | + + + + | Not on file | Not on file | Not on file | + + + + + + + + | Travel History | Travel Start | Travel End | + + + + + + | No recent travel history available. | + + documented as of this encounter Plan of Treatment Not on filedocumented as of this encounter Procedures + +--------+ + + + | Procedure Name | Priori | Date/Time | Associated Diagnosis | Comments | | | ty | | | | + +--------+ + + + | EXTERNAL LAB: BUN | Routin | 12/06/2018 | | Results for this | | | e | | | procedure are in the | | | | | | results section. | + +--------+ + + + | EXTERNAL LAB: | Routin | 12/06/2018 | | Results for this | | GLUCOSE | e | | | procedure are in the | | | | | | results section. | + +--------+ + + + | EXTERNAL LAB: ALT | Routin | 12/06/2018 | | Results for this | | | e | | | procedure are in the | | | | | | results section. | + +--------+ + + + | EXTERNAL LAB: AST | Routin | 12/06/2018 | | Results for this | | | e | | | procedure are in the | | | | | | results section. | + +--------+ + + + | EXTERNAL LAB: | Routin | 12/06/2018 | | Results for this | | ALKALINE PHOSPHATASE | e | | | procedure are in the | | | | | | results section. | + +--------+ + + + | EXTERNAL LAB: | Routin | 12/06/2018 | | Results for this | | BILIRUBIN, TOTAL | e | | | procedure are in the | | | | | | results section. | + +--------+ + + + | EXTERNAL LAB: | Routin | 12/06/2018 | | Results for this | | ALBUMIN | e | | | procedure are in the | | | | | | results section. | + +--------+ + + + | EXTERNAL LAB: | Routin | 12/06/2018 | | Results for this | | PROTEIN, TOTAL | e | | | procedure are in the | | | | | | results section. | + +--------+ + + + | EXTERNAL LAB: | Routin | 12/06/2018 | | Results for this | | CALCIUM | e | | | procedure are in the | | | | | | results section. | + +--------+ + + + | EXTERNAL LAB: CARBON | Routin | 12/06/2018 | | Results for this | | DIOXIDE | e | | | procedure are in the | | | | | | results section. | + +--------+ + + + | EXTERNAL LAB: | Routin | 12/06/2018 | | Results for this | | CHLORIDE | e | | | procedure are in the | | | | | | results section. | + +--------+ + + + | EXTERNAL LAB: | Routin | 12/06/2018 | | Results for this | | POTASSIUM | e | | | procedure are in the | | | | | | results section. | + +--------+ + + + | EXTERNAL LAB: SODIUM | Routin | 12/06/2018 | | Results for this | | | e | | | procedure are in the | | | | | | results section. | + +--------+ + + + | EXTERNAL LAB: CBC | Routin | 12/06/2018 | | Results for this | | | e | | | procedure are in the | | | | | | results section. | + +--------+ + + + | EXTERNAL LAB: EGFR | Routin | 12/06/2018 | | Results for this | | | e | | | procedure are in the | | | | | | results section. | + +--------+ + + + | EXTERNAL LAB: | Routin | 12/06/2018 | | Results for this | | CREATININE | e | | | procedure are in the | | | | | | results section. | + +--------+ + + + | PROTEIN/CREATININE | Routin | 12/06/2018 | | Results for this | | RATIO, URINE | e | | | procedure are in the | | | | | | results section. | + +--------+ + + + documented in this encounter Results Protein/Creatinine Ratio, Urine (12/06/2018) + + + + + + | Component | Value | Ref Range | Performed | Pathologist | | | | | At | Signature | + + + + + + | Protein/Cre | not performed | | | | | at Ratio | | | | | + + + + + + | Protein, Ur | <4 | | | | + + + + + + | Creatinine, | 34 | | | | | Urine | | | | | + + + + + + | PTH Intact, | 185.4 (A) | 15 - 65 | | | | External | | | | | + + + + + + + + | Specimen | + + | Urine | + + External Lab: BUN (12/06/2018) + +--------+ + + + | Component | Value | Ref Range | Performed | Pathologist | | | | | At | Signature | + +--------+ + + + | BUN, | 47 (A) | 6 - 23 | EXTERNAL | | | External | | | LAB | | + +--------+ + + + + + | Resulting Agency Comment | + + | [facility] | + + + +---------+ + + | Performing | Address | City/State/Zipcode | Phone Number | | Organization | | | | + +---------+ + + | EXTERNAL LAB | | | | + +---------+ + + External Lab: Glucose (12/06/2018) + +---------+ + + + | Component | Value | Ref Range | Performed | Pathologist | | | | | At | Signature | + +---------+ + + + | Glucose, | 117 (A) | 70 - 100 | EXTERNAL | | | External | | | LAB | | + +---------+ + + + + + | Resulting Agency Comment | + + | [facility] | + + + +---------+ + + | Performing | Address | City/State/Zipcode | Phone Number | | Organization | | | | + +---------+ + + | EXTERNAL LAB | | | | + +---------+ + + External Lab: ALT (12/06/2018) + +-------+ + + + | Component | Value | Ref Range | Performed | Pathologist | | | | | At | Signature | + +-------+ + + + | ALT, | 24 | 7 - 52 | EXTERNAL | | | External | | | LAB | | + +-------+ + + + + + | Resulting Agency Comment | + + | [facility] | + + + +---------+ + + | Performing | Address | City/State/Zipcode | Phone Number | | Organization | | | | + +---------+ + + | EXTERNAL LAB | | | | + +---------+ + + External Lab: AST (12/06/2018) + +-------+ + + + | Component | Value | Ref Range | Performed | Pathologist | | | | | At | Signature | + +-------+ + + + | AST, | 35 | 13 - 39 | EXTERNAL | | | External | | | LAB | | + +-------+ + + + + + | Resulting Agency Comment | + + | [facility] | + + + +---------+ + + | Performing | Address | City/State/Zipcode | Phone Number | | Organization | | | | + +---------+ + + | EXTERNAL LAB | | | | + +---------+ + + External Lab: Alkaline Phosphatase (12/06/2018) + +---------+ + + + | Component | Value | Ref Range | Performed | Pathologist | | | | | At | Signature | + +---------+ + + + | ALP, | 140 (A) | 31 - 130 | EXTERNAL | | | External | | | LAB | | + +---------+ + + + + + | Resulting Agency Comment | + + | [facility] | + + + +---------+ + + | Performing | Address | City/State/Zipcode | Phone Number | | Organization | | | | + +---------+ + + | EXTERNAL LAB | | | | + +---------+ + + External Lab: Bilirubin, Total (12/06/2018) + +-------+ + + + | Component | Value | Ref Range | Performed | Pathologist | | | | | At | Signature | + +-------+ + + + | Bilirubin, | 1.1 | 0 - 1.2 | EXTERNAL | | | Total, | | | LAB | | | External | | | | | + +-------+ + + + + + | Resulting Agency Comment | + + | [facility] | + + + +---------+ + + | Performing | Address | City/State/Zipcode | Phone Number | | Organization | | | | + +---------+ + + | EXTERNAL LAB | | | | + +---------+ + + External Lab: Albumin (12/06/2018) + +-------+ + + + | Component | Value | Ref Range | Performed | Pathologist | | | | | At | Signature | + +-------+ + + + | Albumin, | 3 | | EXTERNAL | | | External | | | LAB | | + +-------+ + + + + + | Resulting Agency Comment | + + | [facility] | + + + +---------+ + + | Performing | Address | City/State/Zipcode | Phone Number | | Organization | | | | + +---------+ + + | EXTERNAL LAB | | | | + +---------+ + + External Lab: Protein, Total (12/06/2018) + +-------+ + + + | Component | Value | Ref Range | Performed | Pathologist | | | | | At | Signature | + +-------+ + + + | Protein, | 7.1 | 6 - 8.3 | EXTERNAL | | | Total, | | | LAB | | | External | | | | | + +-------+ + + + + + | Resulting Agency Comment | + + | [facility] | + + + +---------+ + + | Performing | Address | City/State/Zipcode | Phone Number | | Organization | | | | + +---------+ + + | EXTERNAL LAB | | | | + +---------+ + + External Lab: Calcium (12/06/2018) + +-------+ + + + | Component | Value | Ref Range | Performed | Pathologist | | | | | At | Signature | + +-------+ + + + | Calcium, | 9.8 | 8.5 - 10.3 | EXTERNAL | | | External | | | LAB | | + +-------+ + + + + + | Resulting Agency Comment | + + | [facility] | + + + +---------+ + + | Performing | Address | City/State/Zipcode | Phone Number | | Organization | | | | + +---------+ + + | EXTERNAL LAB | | | | + +---------+ + + External Lab: Carbon Dioxide (12/06/2018) + +-------+ + + + | Component | Value | Ref Range | Performed | Pathologist | | | | | At | Signature | + +-------+ + + + | Carbon | 24 | 19 - 31 | EXTERNAL | | | Dioxide, | | | LAB | | | External | | | | | + +-------+ + + + + + | Resulting Agency Comment | + + | [facility] | + + + +---------+ + + | Performing | Address | City/State/Zipcode | Phone Number | | Organization | | | | + +---------+ + + | EXTERNAL LAB | | | | + +---------+ + + External Lab: Chloride (12/06/2018) + +-------+ + + + | Component | Value | Ref Range | Performed | Pathologist | | | | | At | Signature | + +-------+ + + + | Chloride, | 103 | 95 - 112 | EXTERNAL | | | External | | | LAB | | + +-------+ + + + + + | Resulting Agency Comment | + + | [facility] | + + + +---------+ + + | Performing | Address | City/State/Zipcode | Phone Number | | Organization | | | | + +---------+ + + | EXTERNAL LAB | | | | + +---------+ + + External Lab: Potassium (12/06/2018) + +-------+ + + + | Component | Value | Ref Range | Performed | Pathologist | | | | | At | Signature | + +-------+ + + + | Potassium, | 4.4 | 3.6 - 5.1 | EXTERNAL | | | External | | | LAB | | + +-------+ + + + + + | Resulting Agency Comment | + + | [facility] | + + + +---------+ + + | Performing | Address | City/State/Zipcode | Phone Number | | Organization | | | | + +---------+ + + | EXTERNAL LAB | | | | + +---------+ + + External Lab: Sodium (12/06/2018) + +-------+ + + + | Component | Value | Ref Range | Performed | Pathologist | | | | | At | Signature | + +-------+ + + + | Sodium, | 140 | 132 - 143 | EXTERNAL | | | External | | | LAB | | + +-------+ + + + + + | Resulting Agency Comment | + + | [facility] | + + + +---------+ + + | Performing | Address | City/State/Zipcode | Phone Number | | Organization | | | | + +---------+ + + | EXTERNAL LAB | | | | + +---------+ + + External Lab: CBC (12/06/2018) + + + + + + | Component | Value | Ref Range | Performed | Pathologist | | | | | At | Signature | + + + + + + | WBC, | 5.5 | 4.5 - 11 | EXTERNAL | | | External | | | LAB | | + + + + + + | HGB, | 11.7 (A) | 12 - 16 | EXTERNAL | | | External | | | LAB | | + + + + + + | HCT, | 37.6 | 35 - 45 | EXTERNAL | | | External | | | LAB | | + + + + + + | PLT, | 168 | 140 - 440 | EXTERNAL | | | External | | | LAB | | + + + + + + | RBC, | 4.17 | 3.8 - 5.1 | EXTERNAL | | | External | | | LAB | | + + + + + + | MCV, | 90 | 81 - 99 | EXTERNAL | | | External | | | LAB | | + + + + + + | RDW, | 14.5 | 10.5 - 15 | EXTERNAL | | | External | | | LAB | | + + + + + + + + | Resulting Agency Comment | + + | [facility] | + + + +---------+ + + | Performing | Address | City/State/Zipcode | Phone Number | | Organization | | | | + +---------+ + + | EXTERNAL LAB | | | | + +---------+ + + External Lab: eGFR (12/06/2018) + +-------+ + + + | Component | Value | Ref Range | Performed | Pathologist | | | | | At | Signature | + +-------+ + + + | eGFR, | 21 | | EXTERNAL | | | External | | | LAB | | + +-------+ + + + + + | Specimen | + + | Blood | + + + + | Resulting Agency Comment | + + | [facility] | + + + +---------+ + + | Performing | Address | City/State/Zipcode | Phone Number | | Organization | | | | + +---------+ + + | EXTERNAL LAB | | | | + +---------+ + + External Lab: Creatinine (12/06/2018) + + + + + + | Component | Value | Ref Range | Performed | Pathologist | | | | | At | Signature | + + + + + + | Creatinine, | 2.22 (A) | 0.7 - 1.11 | EXTERNAL | | | External | | | LAB | | + + + + + + + + | Specimen | + + | Blood | + + + + | Resulting Agency Comment | + + | [facility] | + + + +---------+ + + | Performing | Address | City/State/Zipcode | Phone Number | | Organization | | | | + +---------+ + + | EXTERNAL LAB | | | | + +---------+ + + documented in this encounter Visit Diagnoses Not on filedocumented in this encounter"
--- OUTSIDE RECORDS SUMMARY | ~2019-02-18 | XMS | Encounter Summary ---
Demographics + + + | Address | [address] | | | [place] [address] | + + + | Home Phone | | + + + | Preferred Language | Unknown | + + + | Marital Status | | + + + | Sabianism Affiliation | 1076 | + + + | Race | Unknown | + + + | Ethnic Group | Unknown | + + + Author + + + | Author | [facility] | + + + | Organization | [facility] | + + + | Address [...] Team Providers + +------+ + | Care Wax Room Supervisor Name | Role | Phone | + +------+ + | Flaco Up MD | PCP | | + +------+ + Encounter Details +--------+ + + + + | Date | Type | Department | Care Team | Description | +--------+ + + + + | 12/16/ | Telephone | [facility] | [place], | | | 2019 | | [place] [address] | [address] | | | | | [address] | | | | | | [place] [address] | | | | | | [phone] | | | +--------+ + + + [...] as of this encounter Plan of Treatment + +--------+ + + | Name | Priori | Associated Diagnoses | Order Schedule | | | ty | | | + +--------+ + + | Protein / creatinine ratio, urine | Routin | Hypertension, | Expected: | | | e | unspecified type | 12/18/2018, Expires: | | | | CKD (chronic kidney | 12/16/2019 | | | | disease) stage 3, | | | | | GFR 30-59 ml/min | | + +--------+ + + | Uric acid | Routin | Hypertension, | Expected: | | | e | unspecified type | 12/18/2018, Expires: | | | | CKD (chronic kidney | 12/16/2019 | | | | disease) stage 3, | | | | | GFR 30-59 ml/min | | + +--------+ + + | Urinalysis (reflex to micro) | Routin | Hypertension, | Expected: | | | e | unspecified type | 12/18/2018, Expires: | | | | CKD (chronic kidney | 12/16/2019 | | | | disease) stage 3, | | | | | GFR 30-59 ml/min | | + +--------+ + + | Basic metabolic panel | Routin | Hypertension, | Expected: | | | e | unspecified type | 12/18/2018, Expires: | | | | CKD (chronic kidney | 12/16/2019 | | | | disease) stage 3, | | | | | GFR 30-59 ml/min | | + +--------+ + + | CBC W/Auto Diff (Reflex to | Routin | Hypertension, | Expected: | | Manual) | e | unspecified type | 12/18/2018, Expires: | | | | CKD (chronic kidney | 12/16/2019 | | | | disease) stage 3, | | | | | GFR 30-59 ml/min | | + +--------+ + + | PTH intact no calcium | Routin | Hypertension, | Expected: | | | e | unspecified type | 12/18/2018, Expires: | | | | CKD (chronic kidney | 12/16/2019 | | | | disease) stage 3, | | | | | GFR 30-59 ml/min | | + +--------+ + + as of this encounter Visit Diagnoses + + | Diagnosis | + + | Hypertension, unspecified type - Primary | + + | CKD (chronic kidney disease) stage 3, GFR 30-59 ml/min ([facility]) | + + | Chronic kidney disease, Stage III (moderate) | + +"
--- OUTSIDE RECORDS SUMMARY | ~2019-02-18 | XMS | Encounter Summary ---
Demographics + + + | Address | [address] | | | [place] [address] | + + + | Home Phone | | + + + | Preferred Language | Unknown | + + + | Marital Status | | + + + | Scientology Affiliation | 1076 | + + + | Race | Unknown | + + + | Ethnic Group | Unknown | + + + Author + + + | Author | [facility] | | | and [place] | + + + | Organization | [facility] | | [...] Team Providers + +------+ + | Care A Auxiliary Name | Role | Phone | + +------+ + | Juan Mtz MD | PCP | | + +------+ + Reason for Visit Evaluate & Treat (Routine) + + + + + + + | Status | Reason | Specialty | Diagnoses / | Referred By | Referred To | | | | | Procedures | Contact | Contact | + + + + + + + | Authorized | Specialty | Nephrology | Diagnoses | [place] | [facility], | | | Services | | Chronic | [facility] | Ghassan Levine, | | | Required | | kidney | MD [place] | [address] | | | | | disease, | [address] | [place], [place] | | | | | unspecified | [address] [place] | [address] [place] | | | | | CKD stage | [place] | [place] | | | | | | [address] | [address] Phone: | | | | | | Phone: | [phone] | | | | | | [phone] | Fax: | | | | | | Fax: | [phone] | | | | | | [phone] | | + + + + + + + Encounter Details +--------+ + + + + | Date | Type | Department | Care Team | Description | +--------+ + + + + | 12/09/ | Off-Site | [facility] | Ghassan Lombardo | CHF (congestive | | 2019 | Visit | NEPHROLOGY [address] | [address] | heart failure), NYHA | | | | [address] | [place] [place] [address] | class III, acute on | | | | [place], [place] | [place], [place] | chronic, diastolic | | | | [address] | [address] | (HCC) (Primary Dx); | | | | [phone] | | Chronic kidney | | | | | | disease, stage IV | | | | | | (severe) ([facility]); Type | | | | | | 2 DM with CKD stage | | | | | | 4 and hypertension | | | | | | ([facility]); Anemia of | | | | | | chronic renal | | | | | | failure, stage 4 | | | | | | (severe) ([facility]) | +--------+ + + + + Social [...] + + documented as of this encounter Last Filed Vital Signs + + + + | Vital Sign | Reading | Time Taken | + + + + | Blood Pressure | 124/60 | 12/09/20188 PST | + + + + | Pulse | - | - | + + + + | Temperature | 35.6 C (96 F) | 12/09/20181307 PST | + + + + | Respiratory Rate | - | - | + + + + | Oxygen Saturation | - | - | + + + + | Inhaled Oxygen | - | - | | Concentration | | | + + + + | Weight | 117.1 kg (258 lb 2.5 | 12/09/2018 1308 PST | | | oz) | | + + + + | Height | - | - | + + + + | Body Mass Index | 47.22 | 09/16/2018 1332 PST | + + + + documented in this encounter Progress Ghassan Gallegos DO - 12/09/2018 1300 PSTFormatting of this note might be different fro m the original. Subjective: NEPHROLOGY Patient ID: Chelsea Isaac is a 83 y.o. female. 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 Apparently, she was hospitalized one month ago per her daughter for recurrence of SOB and severe peripheral edema, which improved with IV diuretics. Her daughter believes that a large amount of H2O was removed, and she was sent to a SNF, [facility], apparently , when she returns home, she binges on H2O and does not follow a low salt diet? She admits that she does use a large amount of "ketchup" which is advised her is very high in salt. She denies hiccups, anorexia, but does have paraesthesia. and pruritus, she states of her ankles and feet. She johnson still admit to nightly orthopnea and has to sleep in a recliner. Her meds were stre amlined by Dr. Mtz during a recent Hospitalization, but note that she is on "once daily to rsemide" which has a T1/2 of < 6 hours, and she may need a higher dose? PAST MEDICAL HISTORY: 1. HTN x 10 years but possibly longer. 2. Type 2 DM x 10 years, but possibly longer, she is not completely sure? She previously had very suboptimal control but her Dr. Juan Mtz, her HbA1c has improved in the past 4 mo. significantly. 3. Right Heart failure , as above possibly 2' to CARSON/morbid obesity/hypoventilation syndro me? 4. Venous stasis 2' to #3. 5. Morbid obesity 6. Hypothyroidism unknown duration, she is not completely sure? Review of Systems Objective: BP 124/60 | Temp 35.6 C (96 F) | Wt 117.1 kg (258 lb 2.5 oz) | BMI 47.22 kg/m Physical Exam Heart: Regular rate and rhythm with no S3, S4, murmur or rub. Lungs: CTA bilaterally. No rales or wheezes. Abdomen: soft, obese, nontender, NABS. Extremities:3+ edema to knees, marked venous stasis with breakdown of skin, shallow, Righ t post. tibia; no clubbing, or cyanosis. No foot ulcers. Lab Results Component Value Date NAEX 140 12/06/2018 KEX 4.4 12/06/2018 CLEX 103 12/06/2018 CO2EX 24 12/06/2018 BUNEX 47 (A) 12/06/2018 CREEX 2.22 (A) 12/06/2018 EGFREX 21 12/06/2018 GLUEX 117 (A) 12/06/2018 PHOSEX 3.6 11/08/2018 MGEX 1.8 11/08/2018 PTHEX 185.4 (A) 12/06/2018 Lab Results Component Value Date WBCEX 5.5 12/06/2018 HGBEX 11.7 (A) 12/06/2018 HCTEX 37.6 12/06/2018 PLTEX 168 12/06/2018 Assessment: 1. 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 Acute CHF/corpulmonale-- she may need dosing of her loop diuretic , BID , due to the sev ere edema, and shorter T1/2 of most loop diuretics? Would favor giving he torsemide as BID.* 3. Hypertension-- improved control on losartain. 4. Type 2 DM, requiring insulin-- suboptimal control, but slowly improving, slightly? 5. Hypothyroidism-- on replacement Rx. 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 7. venous stasis 2' to above. Plan: 1. Given her edema and GFR , would be in favor of increasing the torsemide to 100 mg, BID, to provoke some diuresis. 2. Given her circumstances, I thinkg that for the termite control service representative , that the lower dose of meto lazone 5 mg, once Q day is reasonable, as long as we keep close attention on her K+, Mg++, and Na+. 3. I discussed with Chelsea that she truly needs to limit her fluid intake to < 1500 cc/day given her CKD and cor pulmonale. 4. Need to locate her most recent complete Echo.? She belives that it may have been done during the last hospitalization at [facility]? 5. She will limit her intake of sauces ,especially ketchup,mustard, steak sauce, A1 sauce, Min 57 sauce as I discussed that these are very rich in Na+. 6. Will plan to see him back in 2 months at the [facility] at [place], [place]. She will have a CBC, CMP, PO4, Mg++, HbA1c, iPTH, Vitamin D level, lipid profile, and spot Urin e Pro/Cr ratio one week prior to that. : Juan Mtz MD, [facility] documented in this e ncounter Plan of Treatment Not on filedocumented as of this encounter Procedures + +--------+ + + + | Procedure Name | Priori | Date/Time | Associated Diagnosis | Comments | | | ty | | | | + +--------+ + + + | LABS - EXTERNAL SCAN | | 12/06/2018 | | Results for this | | | | 0:00 PST | | procedure are in the | | | | | | results section. | + +--------+ + + + documented in this encounter Results LABS - EXTERNAL SCAN (12/06/2018 0:00 PST) + + + | Narrative | Performed At | + + + | Ordered by an | | | unspecified provider. | | + + + documented in this encounter Visit Diagnoses + + | Diagnosis | + + | CHF (congestive heart failure), NYHA class III, acute on chronic, diastolic ([facility]) - | | Primary | + + | Chronic kidney disease, stage IV (severe) ([facility]) Chronic kidney disease, Stage IV | | (severe) | + + | Type 2 DM with CKD stage 4 and hypertension ([facility]) | + + | Anemia of chronic renal failure, stage 4 (severe) ([facility]) | + + documented in this encounter
--- OUTSIDE RECORDS SUMMARY | ~2019-02-18 | XMS | Encounter Summary ---
Demographics + + + | Address | [address] | | | [place] [address] | + + + | Home Phone | | + + + | Preferred Language | Unknown | + + + | Marital Status | | + + + | Yarsani Affiliation | 1076 | + + + | Race | Unknown | + + + | Ethnic Group | Unknown | + + + Author + + + | Author | [facility] | + + + | Organization | [facility] | + + + | Address [...] Team Providers + +------+ + | Care Wastewater Plant Operator Name | Role | Phone | + +------+ + | Flaco Up MD | PCP | | + +------+ + Encounter Details +--------+ + + + + | Date | Type | Department | Care Team | Description | +--------+ + + + + | 12/16/ | Documentati | [facility] | [place], | | | 2019 | on Only | [place] [address] | [address] | | | | | [address] | | | | | | [place] [address] | | | | | | [phone] | | | +--------+ + + + [...] Treatment Not on fileas of this encounter Procedures + +--------+ + + + | Procedure Name | Priori | Date/Time | Associated Diagnosis | Comments | | | ty | | | | + +--------+ + + + | CBC W/AUTO DIFF | Routin | 10/27/2018 | | Results for this | | (REFLEX TO MANUAL) | e | 2:15 PM | | procedure are in the | | | | PST | | results section. | + +--------+ + + + | COMPREHENSIVE | Routin | 10/27/2018 | | Results for this | | METABOLIC PANEL | e | 2:15 PM | | procedure are in the | | | | PST | | results section. | + +--------+ + + + in this encounter Results Comprehensive metabolic panel (10/27/2018 2:15 PM) + + + + + | Component | Value | Ref Range | Performed At | + + + + + | GLUCOSE | 341 (A) | 70 - 100 mg/dL | | + + + + + | BUN | 15.8 | 6 - 23 mg/dL | | + + + + + | CREATININE | 2.59 (A) | 0.70 - 1.11 mg/dL | | + + + + + | BUN/CREAT | 37.8 (A) | 3.0 - 28.6 | | + + + + + | CALCIUM | 9.9 | 8.5 - 10.3 mg/dL | | + + + + + | TOTAL PROTEIN | 7.8 | 6.0 - 8.3 g/dL | | + + + + + | Albumin | 3.1 (A) | 3.5 - 5.0 | | + + + + + | GLOBULIN | 4.7 (A) | 1.8 - 3.5 | | + + + + + | A/G | | | | + + + + + | TBIL | 0.8 | 0.0 - 1.2 mg/dL | | + + + + + | ALK PHOS | 173 (A) | 31 - 130 | | + + + + + | ALT | 36 | 7 - 62 U/L | | + + + + + | AST | 40 (A) | 13 - 39 U/L | | + + + + + | SODIUM | 134 | 132 - 143 mmol/L | | + + + + + | POTASSIUM | 4.8 | 3.6 - 5.1 mmol/L | | + + + + + | CHLORIDE | 105 | 95 - 112 mmol/L | | + + + + + | CO2 | 18 (A) | 19 - 31 | | + + + + + | ANION GAP AGAP | 15.8 | 7 - 21 mmol/L | | + + + + + | EGFR | 18 (A) | 60 - 140 mg/dL | | + + + + + + + | Specimen | + + | Blood | + + CBC W/Auto Diff (Reflex to Manual) (10/27/2018 2:15 PM) + + + + + | Component | Value | Ref Range | Performed At | + + + + + | WBC | 6.9 | 4.5 - 11.0 10^3/mL | | + + + + + | RBC | 4.08 | 3.8 - 5.1 10^6/ L | | + + + + + | HGB | 11.5 (A) | 12.0 - 16.0 g/dL | | + + + + + | HCT | 33.4 (A) | 35 - 45 % | | + + + + + | MCV | 89.0 | 81 - 99 fL | | + + + + + | MCH | 28 | 27 - 33 pg | | + + + + + | MCHC | 32 | 30 - 36 g/dL | | + + + + + | PLT | 206 | 140 - 440 K/ L | | + + + + + | RDW SD | 14.1 | 10.5 - 15.0 % | | + + + + + | MPV | | fL | | + + + + + | DIFF TYPE | | | | + + + + + | NEUTROPHILS | 65.7 | 39 - 80 % | | + + + + + | LYMPHOCYTES | 16.3 (A) | 24 - 44 % | | + + + + + | MONOCYTES | 15.5 (A) | 0 - 12 % | | + + + + + | EOSINOPHILS | 1.5 | 0 - 6 % | | + + + + + | BASOPHILS | 1.0 | 0 - 2 % | | + + + + + | NEUTROPHILS ABS | | / L | | + + + + + | LYMPHOCYTES ABS | | / L | | + + + + + | MONOCYTES ABS | | / L | | + + + + + | EOSINOPHILS ABS | | / L | | + + + + + | BASOPHILS ABS | | / L | | + + + + + + + | Specimen | + + | Blood | + + in this encounter Visit Diagnoses Not on filein this encounter"
--- OUTSIDE RECORDS SUMMARY | ~2019-02-18 | XMS | Encounter Summary ---
Demographics + + + | Address | [address] | | | [place] [address] | + + + | Home Phone | | + + + | Preferred Language | Unknown | + + + | Marital Status | | + + + | Rastafari Affiliation | 1076 | + + + | Race | Unknown | + + + | Ethnic Group | Unknown | + + + Author + + + | Author | [facility] | | | and [place] | + + + | Organization | [facility] | | | and [...] Team Providers + +------+ + | Care Senior Microsoft Consultant Name | Role | Phone | + +------+ + | Juan Mtz MD | PCP | | + +------+ + Encounter Details +--------+ + + + + | Date | Type | Department | Care Team | Description | +--------+ + + + + | 01/16/ | Orders Only | [facility] | [place], | Chronic kidney | | 2019 | | NEPHROLOGY [address] | Federico Monahan NON FERROUS MATERIAL HANDLER [address] | disease, stage IV | | | | [address] | [address], [place] | (severe) (HCC) | | | | [place], [place] | [address] [place], [place] | (Primary Dx); Type 2 | | | | [address] | [address] | DM with CKD stage 4 | | | | [phone] | | and hypertension | | | | | | (HCC) | +--------+ + + + + Social [...] + + documented as of this encounter Progress Notes Emily Mitchell RN - 01/16/2019 1213 PDTLabs for upcoming nephrology appointment sent to: [facility] documented in this encounter Plan of Treatment + +--------+ + + | Name | Priori | Associated Diagnoses | Order Schedule | | | ty | | | + +--------+ + + | CBC with Differential | Routin | Chronic kidney | 1 Occurrences | | | e | disease, stage IV | starting 01/16/2019 | | | | (severe) (HCC) | until 01/17/2020 | + +--------+ + + | Comprehensive Metabolic Panel | Routin | Chronic kidney | 1 Occurrences | | | e | disease, stage IV | starting 01/16/2019 | | | | (severe) (HCC) | until 01/17/2020 | + +--------+ + + | Phosphorus | Routin | Chronic kidney | 1 Occurrences | | | e | disease, stage IV | starting 01/16/2019 | | | | (severe) (HCC) | until 01/17/2020 | + +--------+ + + | Magnesium | Routin | Chronic kidney | 1 Occurrences | | | e | disease, stage IV | starting 01/16/2019 | | | | (severe) (HCC) | until 01/17/2020 | + +--------+ + + | Hemoglobin A1C | Routin | Chronic kidney | 1 Occurrences | | | e | disease, stage IV | starting 01/16/2019 | | | | (severe) (HCC) Type | until 01/17/2020 | | | | 2 DM with CKD stage | | | | | 4 and hypertension | | | | | (HCC) | | + +--------+ + + | Lipid Panel | Routin | Chronic kidney | 1 Occurrences | | | e | disease, stage IV | starting 01/16/2019 | | | | (severe) (HCC) Type | until 01/17/2020 | | | | 2 DM with CKD stage | | | | | 4 and hypertension | | | | | (HCC) | | + +--------+ + + | Vitamin D, Deficiency Screen | Routin | Chronic kidney | 1 Occurrences | | (25-Hydroxy) | e | disease, stage IV | starting 01/16/2019 | | | | (severe) (HCC) | until 01/17/2020 | + +--------+ + + | Parathyroid Hormone, Intact | Routin | Chronic kidney | 1 Occurrences | | | e | disease, stage IV | starting 01/16/2019 | | | | (severe) (HCC) | until 01/17/2020 | + +--------+ + + documented as of this encounter Visit Diagnoses + + | Diagnosis | + + | Chronic kidney disease, stage IV (severe) (HCC) - Primary Chronic kidney disease, | | Stage IV (severe) | + + | 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
--- OUTSIDE RECORDS SUMMARY | ~2019-02-18 | XMS | Encounter Summary ---
Demographics + + + | Address | [address] | | | [place] [address] | + + + | Home Phone | | + + + | Preferred Language | Unknown | + + + | Marital Status | | + + + | Catholic Affiliation | 1076 | + + + | Race | Unknown | + + + | Ethnic Group | Unknown | + + + Author + + + | Author | [facility] | + + + | Organization | [facility] | + + + | Address [...] Team Providers + +------+ + | Care Nitrocellulose Operator Name | Role | Phone | + +------+ + | Flaco Up MD | PCP | | + +------+ + Encounter Details +--------+ + + + + | Date | Type | Department | Care Team | Description | +--------+ + + + + | 12/12/ | Telephone | [facility] | [place], | | | 2019 | | [place] [address] | [address] | | | | | [address] | | | | | | [place] [address] | | | | | | [phone] | | | +--------+ + + + [...] | | e | unspecified type | 12/16/2018, Expires: | | | | CKD (chronic kidney | 12/12/2019 | | | | disease) stage 3, | | | | | GFR 30-59 ml/min | | + +--------+ + + | CBC W/Auto Diff (Reflex to | Routin | Hypertension, | Expected: | | Manual) | e | unspecified type | 12/16/2018, Expires: | | | | CKD (chronic kidney | 12/12/2019 | | | | disease) stage 3, | | | | | GFR 30-59 ml/min | | + +--------+ + + | Protein / creatinine ratio, urine | Routin | Hypertension, | Expected: | | | e | unspecified type | 12/16/2018, Expires: | | | | CKD (chronic kidney | 12/12/2019 | | | | disease) stage 3, | | | | | GFR 30-59 ml/min | | + +--------+ + + | Uric acid | Routin | Hypertension, | Expected: | | | e | unspecified type | 12/16/2018, Expires: | | | | CKD (chronic kidney | 12/12/2019 | | | | disease) stage 3, | | | | | GFR 30-59 ml/min | | + +--------+ + + | Urinalysis (reflex to micro) | Routin | Hypertension, | Expected: | | | e | unspecified type | 12/16/2018, Expires: | | | | CKD (chronic kidney | 12/12/2019 | | | | disease) stage 3, | | | | | GFR 30-59 ml/min | | + +--------+ + + | PTH intact no calcium | Routin | Hypertension, | Expected: | | | e | unspecified type | 12/16/2018, Expires: | | | | CKD (chronic kidney | 12/12/2019 | | | | disease) stage 3, | | | | | GFR 30-59 ml/min | | + +--------+ + + as of this encounter Visit Diagnoses + + | Diagnosis | + + | Hypertension, unspecified type - Primary | + + | CKD (chronic kidney disease) stage 3, GFR 30-59 ml/min ([facility]) | + + | Chronic kidney disease, Stage III (moderate) | + +"
--- OUTSIDE RECORDS SUMMARY | ~2019-02-18 | XMS | Encounter Summary ---
Demographics + + + | Address | [address] | | | [place] [address] | + + + | Home Phone | | + + + | Preferred Language | Unknown | + + + | Marital Status | | + + + | Congregation Affiliation | 1076 | + + + | Race | Unknown | + + + | Ethnic Group | Unknown | + + + Author + + + | Author | [facility] | | | and [place] | + + + | Organization | [facility] | | [...] Team Providers + +------+ + | Care Zoo Caretaker Name | Role | Phone | + [...] | NEPHROLOGY [address] | Federico Monahan PATIENT [address] | disease, stage IV | | | | [address] | [address], [place] | (severe) (HCC) | | | | [place], [place] | [address] [place], [place] | (Primary Dx); Type 2 | | | | [address] | [address] | DM with CKD stage 4 | | | | [phone] | | and hypertension | | | [...] PDTLabs for upcoming nephrology appointment sent to: [facility] documented in this encounter Plan of Treatment [...]
--- OUTSIDE RECORDS SUMMARY | ~2019-02-18 | XMS | Clinical Summary ---
Demographics + + + | Address | [address] | | | [place] [address] | + + + | Home Phone | | + + + | Preferred Language | Unknown | + + + | Marital Status | | + + + | Synagogue Affiliation | 1076 | + + + | Race | Unknown | + + + | Ethnic Group | Unknown | + + + Author + + + | Author | [facility] | + + + | Organization | [facility] | + + + | Address [...] Team Providers + +------+ + | Care Group Controller Name | Role | Phone | + +------+ + | Flaco Up MD | PP | | + +------+ + Allergies + + + + + + | Active Allergy | Reactions | Severity | Noted | Comments | | | | | Date | | + + + + + + | Sulfa Antibiotics | Hives | High | 12/24/19 | . | | | | | 18 | | + + + + + + Current Medications + + +--------+---------+------+------+-------+ | Prescription | Sig. | Disp. | Refills | Star | End | Statu | | | | | | t | Date | s | | | | | | Date | | | + + +--------+---------+------+------+-------+ | citalopram | Take 20 mg by mouth | | | | | Activ | | (CELEXA) 20 MG | daily. | | | | | e | | tablet | | | | | | | + + +--------+---------+------+------+-------+ | gabapentin | Take 100 mg by mouth | | | | | Activ | | (NEURONTIN) 100 MG | 2 (two) times | | | | | e | | capsule | daily. | | | | | | + + +--------+---------+------+------+-------+ | levothyroxine | Take 75 mcg by mouth | | | | | Activ | | (SYNTHROID) 75 MCG | every morning | | | | | e | | tablet | before breakfast. | | | | | | + + +--------+---------+------+------+-------+ | losartan (COZAAR) | Take 50 mg by mouth | | | | | Activ | | 50 MG tablet | 2 (two) times daily. | | | | | e | + + +--------+---------+------+------+-------+ | nystatin | Apply topically as | | | | | Activ | | (MYCOSTATIN) powder | needed. | | | | | e | + + +--------+---------+------+------+-------+ | oxyCODONE | Take 1 tablet by | 30 | 0 | 03/0 | | Activ | | (OXYCONTIN) 10 MG 12 | mouth as needed for | tablet | | 9/20 | | e | | hr tablet | Pain. | | | 18 | | | + + +--------+---------+------+------+-------+ | aspirin 81 MG | Take 1 tablet by | 30 | 11 | 03/1 | | Activ | | chewable tablet | mouth daily with | tablet | | 0/20 | | e | | | breakfast. | | | 18 | | | + + +--------+---------+------+------+-------+ | labetalol | Take 0.5 tablets by | 30 | 11 | 03/0 | | Activ | | (NORMODYNE) 100 MG | mouth 2 (two) times | tablet | | 07/11 | | e | | tablet | daily. | | | 18 | | | + + +--------+---------+------+------+-------+ | furosemide (LASIX) | Take 1 tablet by | 30 | 11 | 03/0 | | Activ | | 20 MG tablet | mouth daily. | tablet | | 20 | | e | | | | | | 18 | | | + + +--------+---------+------+------+-------+ | amLODIPine | Take 1 tablet by | 30 | 11 | 03/2 | | Activ | | (NORVASC) 5 MG | mouth daily. | tablet | | 0/20 | | e | | tabletIndications: | | | | 18 | | | | Hypertension, | | | | | | | | unspecified type, | | | | | | | | Diastolic congestive | | | | | | | | heart failure, | | | | | | | | unspecified | | | | | | | | congestive heart | | | | | | | | failure chronicity, | | | | | | | | Hospital discharge | | | | | | | | follow-up, | | | | | | | | Bradycardia | | | | | | | + + +--------+---------+------+------+-------+ | glipiZIDE | Take 10 mg by mouth. | | | | | Activ | | (GLUCOTROL) 10 MG | | | | | | e | | tablet | | | | | | | + + +--------+---------+------+------+-------+ | | Take 1 tablet by | | | | | Activ | | HYDROcodone-acetamin | mouth every 6 (six) | | | | | e | | ophen (NORCO) 5-325 | hours as needed for | | | | | | | MG per tablet | Pain. | | | | | | + + +--------+---------+------+------+-------+ | lidocaine (LMX) 4 | Apply topically as | | | | | Activ | | % cream | needed. | | | | | e | + + +--------+---------+------+------+-------+ | insulin glargine | Inject into the | | | | | Activ | | (LANTUS) 100 UNIT/ML | skin nightly. | | | | | e | | injection | | | | | | | + + +--------+---------+------+------+-------+ Active Problems + + + | Problem | Noted Date | + + + | Hospital discharge follow-up | 01/08/2018 | + + + | Bradycardia | 01/08/2018 | + + + | HTN (hypertension) | 12/23/2017 | + + + | DM type 2 (diabetes mellitus, type 2) ([facility]) | 12/23/2017 | + + + | Obesity | 12/23/2017 | + + + | Hypothyroidism | 12/23/2017 | + + + | CKD (chronic kidney disease) stage 3, GFR 30-59 ml/min ([facility]) | 12/23/2017 | + + + | Candidiasis of skin | 12/23/2017 | + + + | Hyperkalemia | 12/23/2017 | + + + | Diastolic congestive heart failure (HCC) | 12/23/2017 | + + + Encounters +--------+ + + + + | Date | Type | Specialty | Care Team | Description | +--------+ + + + + | 12/20/ | Telephone | | [place], | | | 2019 | | | [facility] | | +--------+ + + + + | 12/16/ | Documentati | Tyra Ibrahim, | | | 2018 | on Only | | [address] | | +--------+ + + + + | 12/16/ | Orders Only | | [place], | | | 2018 | | | [facility] [place] | | +--------+ + + + + | 12/16/ | Telephone | | [place], | | | 2018 | | | [facility] [place] | | +--------+ + + + + 12/12/ | Telephone | Tyra Ibrahim, | | 2018 | | | [place] | | +--------+ + + + + | 12/04/ | Documentati | | Robson Kennedy H | Other (Referral from | 2018 | on Only | | | Dr. Lam DO) | +--------+ + + + + from Last 3 Months Family History + + +------+ + | Medical History | Relation | Name | Comments | + + +------+ + | CVA | Father | | | + + +------+ + | Cancer | Sister | | | + + +------+ + | Kidney disease | Neg Hx | | | + + +------+ + + +------+--------+ + | Relation | Name | Status | Comments | + +------+--------+ + | Father | | | | + +------+--------+ + | Sister | | | | + +------+--------+ + Social History + +-------+ +--------+------+ | [...] on file | | + + + Last Filed Vital Signs + + + + | Vital Sign | Reading | Time Taken | + + + + | Blood Pressure | 122/64 | 01/08/2018 3:03 PM PDT | + + + + | Pulse | 48 | 01/08/2018 3:03 PM PDT | + + + + | Temperature | 36.8 C (98.3 F) | 12/28/2017 12:13 PM PST | + + + + | Respiratory Rate | 18 | 01/08/2018 3:03 PM PDT | + + + + | Oxygen Saturation | 93% | 01/08/2018 3:03 PM PDT | + + + + | Inhaled Oxygen | - | - | | Concentration | | | + + + + | Weight | 123.5 kg (272 lb 3.2 | 12/27/2017 10:19 PM PST | | | oz) | | + + + + | Height | 154.9 cm (5' 1") | 01/08/2018 3:03 PM PDT | + + + + | Body Mass Index | 51.43 | 12/27/2017 10:19 PM PST | + + + + Plan of Treatment + + + + + | Health Maintenance | Due Date | Last Done | Comments | + + + + + | Diabetic Eye Exam | | | | | | 4 | | | + + + + + | Diabetic Foot Exam | | | | | | 4 | | | + + + + + | Microalbumin | | | | | Screening | 4 | | | + + + + + | Vaccine: | | | | | Dtap/Tdap/Td (1 - | 3 | | | | Tdap) | | | | + + + + + | Vaccine: Zoster (1 | | | | | of 2) | 4 | | | + + + + + | DEXA SCAN SCREENING | | | | | | 9 | | | + + + + + | Vaccine: | | | | | Pneumococcal 65+ | 9 | | | | Low/Medium Risk (1 | | | | | of 2 - PCV13) | | | | + + + + + | Hemoglobin A1c | | 12/24/2017 | | | | 8 | | | + + + + + | Vaccine: Influenza | | | | | (Season Ended) | 9 | | | + + + + + Results Not on filefrom Last 3 Months Insurance + +--------+ +------+-------+ + | Payer | Benefi | Subscriber | Type | Phone | Address | | | t Plan | ID | | | | | | / | | | | | | | Group | | | | | + +--------+ +------+-------+ + | MEDICARE | MEDICA | [id number] | | | [address] | | | [place] | | | | [place] [address] | | | IP-OP | | | | | + +--------+ +------+-------+ + | [employer]DS HE[employer] PLAN | ODS | [id number] | | | | | | HEALTH | | | | | | | PLAN | | | | | + +--------+ +------+-------+ + | MEDICAID | MEDICA | [id number] | | | [address] | | | [place] | | | | [place] | | | [place] | | | | [phone] | + +--------+ +------+-------+ + + +--------+ +--------+ + + | Guarantor Name | Accoun | Relation to | Date | Phone | Billing Address | | | t Type | Patient | of | | | | | | | | | | + +--------+ +--------+ + + | CHELSEA ISAAC | Person | Self [birth year] Home: | [address] | | | al/Fam | | 1935 | [phone] | [place] | | | summer | | | [phone] | [address] | + +--------+ +--------+ + +
--- OUTSIDE RECORDS SUMMARY | ~2019-02-18 | XMS | Encounter Summary ---
Demographics + + + | Address | [address] | | | [place] [address] | + + + | Home Phone | | + + + | Preferred Language | Unknown | + + + | Marital Status | | + + + | Roman Catholic Affiliation | 1076 | + + + | Race | Unknown | + + + | Ethnic Group | Unknown | + + + Author + + + | Author | [facility] | + + + | Organization | [facility] | + + + | Address [...] Team Providers + +------+ + | Care Optical Engineering Technician Name | Role | Phone | [...] | | | | | [place] [address] | | | | | | [phone] | | | +--------+ + + + [...] kidney disease) stage 3, GFR 30-59 ml/min ([facility]) | + + | Chronic kidney disease, Stage III (moderate) | + +"
--- OUTSIDE RECORDS SUMMARY | ~2019-02-18 | XMS | Encounter Summary ---
Demographics + + + | Address | [address] | | | [place] [address] | + + + | Home Phone | | + + + | Preferred Language | Unknown | + + + | Marital Status | | + + + | Yazidi Affiliation | 1076 | + + + | Race | Unknown | + + + | Ethnic Group | Unknown | + + + Author + + + | Author | [employer] | + + + | Organization | [facility] | + + + | Address [...] Team Providers + +------+ + | Care Consumer Advocate Name | Role | Phone | + +------+ + | Flaco Up MD | PCP | | + +------+ + Encounter Details +--------+ + + + + | Date | Type | Department | Care Team | Description | +--------+ + + + + | 12/20/ | Telephone | [facility] | [place], | | | 2019 | | [place] [address] | [address] | | | | | [address] | | | | | | [place] [address] | | | | | | [phone] | | | +--------+ + + + [...]
--- OUTSIDE RECORDS SUMMARY | ~2019-02-18 | XMS | Encounter Summary ---
Demographics + + + | Address | [address] | | | [place] [address] | + + + | Home Phone | | + + + | Preferred Language | Unknown | + + + | Marital Status | | + + + | Sabianism Affiliation | 1076 | + + + | Race | Unknown | + + + | Ethnic Group | Unknown | + + + Author + + + | Author | [employer] | + + + | Organization | [facility] | + + + | Address [...] Team Providers + +------+ + | Care Lamp Inspector Name | Role | Phone | + [...] | | 2019 | on Only | [place] [address] | [address] | Dr. Lam DO) | | | | [address] | [place] [address] | | | | | [place] [address] | [phone] | | | | | [phone] | | | +--------+ + + + [...]
--- OUTSIDE RECORDS SUMMARY | ~2019-02-18 | XMS | Encounter Summary ---
Demographics + + + | Address | [address] | | | [place] [address] | + + + | Home Phone | | + + + | Preferred Language | Unknown | + + + | Marital Status | | + + + | Roman Catholic Affiliation | 1076 | + + + | Race | Unknown | + + + | Ethnic Group | Unknown | + + + Author + + + | Author | [employer] [facility] [facility] | + + + | Organization | [facility] | + + + | Address [...] Team Providers + +------+ + | Care Credit Compliance Officer Name | Role | Phone | + +------+ + | Flaco Up MD | PCP | | + +------+ + Encounter Details +--------+ + + + + | Date | Type | Department | Care Team | Description | +--------+ + + + + | 12/16/ | Orders Only | [facility] | [place], | | | 2018 | | [place] [address] | [address] | | | | | [address] | | | | | | [place] [address] | | | | | | [phone] | | | +--------+ + + + [...]
--- OUTSIDE RECORDS SUMMARY | ~2019-02-18 | XMS | Encounter Summary ---
Demographics + + + | Address | [address] | | | [place] [address] | + + + | Home Phone | | + + + | Preferred Language | Unknown | + + + | Marital Status | | + + + | Druze Affiliation | 1076 | + + + | Race | Unknown | + + + | Ethnic Group | Unknown | + + + Author + + + | Author | [facility] | | | and [place] | + + + | Organization | [facility] | | | and [...] Team Providers + +------+ + | Care Store Mgr Name | Role | Phone | + [...] | | [address] | [place] | | | | | [place], [place] | [place], [place] | | | | | [address] | [address] | | | | | [phone] | | | +--------+ + + + [...]
--- OUTSIDE RECORDS SUMMARY | ~2019-02-18 | XMS | Encounter Summary ---
Demographics + + + | Address | [address] | | | [place] [address] | + + + | Home Phone | | + + + | Preferred Language | Unknown | + + + | Marital Status | | + + + | Orthodoxy Affiliation | 1076 | + + + | Race | Unknown | + + + | Ethnic Group | Unknown | + + + Author + + + | Author | [facility] | | | and [place] | + + + | Organization | [facility] | | | [...] Team Providers + +------+ + | Care Sales Operations Associate Name | Role | Phone | + [...] | disease, | [address] | [place], [place] | | | | | unspecified | [address] [place] | [address] [place] | | | | | CKD stage | [place] | [place] | | | | | | [address] | [address] Phone: | | | | | | Phone: | [phone] | | | | | | [phone] | Fax: | | | | | | Fax: | [phone] | | | | | | [phone] | | + + + + + [...] | | [address] | [place], [place] [address] | class III, acute on | | | | [place], [place] | [place] | chronic, diastolic | | | | [address] | [address] | (HCC) (Primary Dx); | | | | [phone] | | Chronic kidney | | | | | | disease, stage IV | | | | | | (severe) ([facility]); Type | | | | | | 2 DM with CKD stage | | | | | | 4 and hypertension | | | | | | ([facility]); Anemia of | | | | | | chronic renal | | | | | | failure, stage 4 | | | | | | (severe) ([facility]) | +--------+ + + + + Social [...] she was sent to a SNF, [facility], apparently , when she returns home, she [...] her circumstances, I thinkg that for the emt intermediate , that the lower dose of meto [...] been done during the last hospitalization at [facility]? 5. She will limit her intake of sauces ,especially ketchup,mustard, steak sauce, A1 sauce, Min 57 sauce as I discussed that these are very rich in Na+. 6. Will plan to see him back in 2 months at the CKD Clinic at [place], [place]. She will have a CBC, CMP, PO4, Mg++, HbA1c, iPTH, Vitamin D level, lipid profile, and spot Urin e Pro/Cr ratio one week prior to that. : Juan Mtz MD, [facility] documented in this e ncounter [...] NYHA class III, acute on chronic, diastolic ([facility]) - | | Primary | + + | Chronic kidney disease, stage IV (severe) ([facility]) Chronic kidney disease, Stage IV | | (severe) | + + | Type 2 DM with CKD stage 4 and hypertension ([facility]) | + + | Anemia of chronic renal failure, stage 4 (severe) ([facility]) | + + documented in this encounter
--- OUTSIDE RECORDS SUMMARY | ~2019-02-18 | XMS | Encounter Summary ---
Demographics + + + | Address | [address] | | | [place] [address] | + + + | Home Phone | | + + + | Preferred Language | Unknown | + + + | Marital Status | | + + + | Orthodoxy Affiliation | 1076 | + + + | Race | Unknown | + + + | Ethnic Group | Unknown | + + + Author + + + | Author | [employer] | + + + | Organization | [facility] [employer] | + + + | Address [...] Team Providers + +------+ + | Care Offal Worker Name | Role | Phone | + [...] | | | | | [place] [address] | | | | | | [phone] | | | +--------+ + + + [...]
--- OUTSIDE RECORDS SUMMARY | ~2019-02-18 | XMS | Encounter Summary ---
Demographics + + + | Address | [address] | | | [place] [address] | + + + | Home Phone | | + + + | Preferred Language | Unknown | + + + | Marital Status | | + + + | Holiness Affiliation | 1076 | + + + | Race | Unknown | + + + | Ethnic Group | Unknown | + + + Author + + + | Author | [facility] | | | and [place] | + + + | Organization | [facility] | | [...] Team Providers + +------+ + | Care Basketball Player Name | Role | Phone | + +------+ + | Juan Mtz MD | PCP | | + +------+ + Encounter Details +--------+ + + + + | Date | Type | Department | Care Team | Description | +--------+ + + + + | 12/03/ | Orders Only | [facility] | Ghassan Lombardo | Chronic kidney | | 2019 | | NEPHROLOGY [address] | M, DO [address] | disease, stage IV | | | | [address] | [place], [place] [address] | (severe) (HCC) | | | | [place], [place] | [place] | (Primary Dx) | | | | [address] | [address] | | | | | [phone] | | | +--------+ + + + [...] Not on filedocumented as of this encounter Visit Diagnoses + + | Diagnosis | + + | Chronic kidney disease, stage IV (severe) (HCC) - Primary Chronic kidney disease, | | Stage IV (severe) | + + documented in this encounter"
--- OUTSIDE RECORDS SUMMARY | ~2019-02-18 | XMS | Encounter Summary ---
Demographics + + + | Address | [address] | | | [place] [address] | + + + | Home Phone | | + + + | Preferred Language | Unknown | + + + | Marital Status | | + + + | Confucianist Affiliation | 1076 | + + + | Race | Unknown | + + + | Ethnic Group | Unknown | + + + Author + + + | Author | [employer] | + + + | Organization | [facility] [employer] [facility] | + + + | Address [...] Team Providers + +------+ + | Care Travel Med Surg Rn Name | Role | Phone | + [...] | | | | | [place] [address] | | | | | | [phone] | | | +--------+ + + + [...] kidney disease) stage 3, GFR 30-59 ml/min ([facility]) | + + | Chronic kidney disease, Stage III (moderate) | + +"
--- OUTSIDE RECORDS SUMMARY | ~2019-02-18 | XMS | Encounter Summary ---
Demographics + + + | Address | [address] | | | [place] [address] | + + + | Home Phone | | + + + | Preferred Language | Unknown | + + + | Marital Status | | + + + | Evangelical Affiliation | 1076 | + + + [...] Team Providers + +------+ + | Care Coffee Blender Name | Role | Phone | + [...] | | Chronic | Zeyad | Ghassan Contreras, DO | | | Required | | kidney | MD [place] | [address] | | | | | disease, | [address] | [place], [place] | | | | | unspecified | [address] [place] | [address] | | | | | CKD stage | [place] | [place] | | | | | | [address] | [address] Phone: | | | | | | Phone: | [phone] | | | | | | [phone] | Fax: | | | | | | Fax: | [phone] | | | | | | [phone] | | + + + + + + + Encounter Details +--------+ + + + + | Date | Type | Department | Care Team | Description | +--------+ + + + + | 02/17/ | Off-Site | [facility] | Ghassan Lombardo | Chronic kidney | | 2019 | Visit | NEPHROLOGY [address] | [address] | disease, stage IV | | | | [address] | [place], [place] [address] | (severe) (HCC) | | | | [place], [place] | [place] | (Primary Dx); CHF | | | | [address] | [address] | (congestive heart | | | | [phone] | | failure), NYHA class | | | | | | III, acute on | | | | | | chronic, diastolic | | | | | | ([facility]); Cor pulmonale | | | | | | (chronic) ([facility]); | | | | | | Type 2 DM with CKD | | | | | | stage 4 and | | | | | | hypertension ([facility]) | +--------+ + + + + [...] + + + | Blood Pressure | 112/45 | 02/17/20191623 PDT | + + + + | Pulse | - | - | + + + + | Temperature | 35.6 C (96 F) | 02/17/20191623 PDT | + + + + | Respiratory Rate | - | - | + + + + | Oxygen Saturation | - | - | + + + + | Inhaled Oxygen | - | - | | Concentration | | | + + + + | Weight | 111.2 kg (245 lb 2.4 | 02/17/2019 1624 PDT | | | oz) | | + + + + | Height | - | - | + + + + | Body Mass Index | 44.84 | 09/16/2018 1332 PST | + + + + documented in this encounter Progress Ghassan Gallegos DO - 02/17/2019 1600 PDTFormatting of this note might be different dale contreras the original. Subjective: NEPHROLOGY Patient ID: Chelsea Isaac is a 84 y.o. female. 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 She al so has chronic Right Heart failure from CARSON/hypoventilation/morbid obesity. She is very hard of hearing. Apparently, due to her chronic co-morbid conditions,and elde rly age she has been X-ferred to an Adult [facility]. She appears to be under a more control led environment, but states that her BG is 200-300 mg/dl. She appears confused about why sh e goes to a CKD Clinic, and does not appear to have much insight into her CKD, DM, CHF or di et. Her attentive daughter, Rosie, accompanies her today. Chelsea appears very flat, and detached . When asked if she would desire outpt hemodialysis , she states "no." When asked if she d esires CPR, intubation or artificial life support, if it were to become necessary, she clear ly states "no." I think that she is giving informed consent. She does correctly give her n ranjeet, the U.[place]. President, and the [facility]. After a detailed discussion, she volunt eers that she feels that overall her "quality of life is not very good", due to arthritis, d econditioning, and now requiring Assisted Living. She denies hiccups, nausea, pruritus, bu t does c/o BIRCH, and no energy. (She had her lab drawn this AM and is was not available at th e time of visit). PAST MEDICAL HISTORY: 1. HTN x 10 years but possibly longer. 2. Type 2 DM x 10 years, but possibly longer, she is not completely sure? She previously had very suboptimal control but her Dr. Juan Mtz, her HbA1c has improved in the past 4 mo. significantly. 3. Right Heart failure , as above possibly 2 to CARSON/morbid obesity/hypoventilation syndr ome? 4. Venous stasis 2 to #3. 5. Morbid obesity 6. Hypothyroidism unknown duration, she is not completely sure? Outpatient Medications Marked as Taking for the 02/17/19 encounter (Off-Site Visit) with Jono Lombardo, DO Medication Sig Dispense Refill gabapentin (NEURONTIN) 100 mg capsule Take 200 mg by mouth 3 times daily. insulin aspart (NOVOLOG) 100 units/mL injection Inject 2-12 Units under the skin 3 time s daily (before meals). insulin glargine (LANTUS) 100 units/mL injection (vial) Inject 36 Units under the skin nightly. 1 vial 0 [DISCONTINUED] insulin glargine (LANTUS) 100 units/mL injection (vial) Inject 30 Units under the skin nightly. 1 vial 0 levothyroxine (SYNTHROID) 150 mcg tablet Take 150 mcg by mouth every morning (before br eakfast). losartan (COZAAR) 50 mg tablet Take 1 tablet by mouth Daily. metOLazone (ZAROXOLYN) 5 MG tablet Take 5 mg by mouth Daily. torsemide (DEMADEX) 20 mg tablet Take 5 tablets by mouth 2 times daily. 200 tablet 11 Allergies Allergen Reactions Sulfa Antibiotics Rash Review of Systems Objective: BP 112/45 | Temp 35.6 C (96 F) | Wt 111.2 kg (245 lb 2.4 oz) | BMI 44.84 kg/m Physical Exam Heart: Regular rate and rhythm with grade 2/6 mid-JESSA at aortic area, no S3, or rub. Lungs: CTA with decreased BS bilaterally, no rales or wheezes. Abdomen: soft, obese, nontender, NABS. Extremities: 1+ edema , decreased?, venous stasis some better?, no asterixis. Lab Results Component Value Date NAEX 138 02/17/2019 KEX 3.8 02/17/2019 CLEX 94 02/17/2019 CO2EX 29 02/17/2019 BUNEX 183 02/17/2019 CREEX 3.59 02/17/2019 EGFREX 12 02/17/2019 GLUEX 251 02/17/2019 PHOSEX 5.3 02/17/2019 MGEX 2.2 02/17/2019 PTHEX 185.4 (A) 12/06/2018 [id number] 8.0 02/17/2019 Lab Results Component Value Date WBCEX 9.1 02/17/2019 HGBEX 11.5 02/17/2019 HCTEX 35.7 02/17/2019 PLTEX 178 02/17/2019 Lab Results Component Value Date VITDEX 12 02/17/2019 Assessment: 1. 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 However, she denies orthostatic symptoms. 2. chronic CHF/cor pulmonale-- she is improved on exam, however, GFR has worsened. 3. Hypertension-- good control on losartan. 4. Type 2 DM, requiring insulin-- fair control. 5. Hypothyroidism-- on replacement Rx. 6. CKD/MBD-- PTH not performed, as requested. 7. venous stasis 2 to above-- improved on PE. 8. DNR/DNI-- at pt request. Plan: 1. Again, her lab came back after she had left the Clinic. I called [facility] and faxed them to hold the metolazone for now. She may be able to be controlled with torsemide alone, at this point? 2. She will have a repeat Renal Panel, Mg++ in one week. 3. Again, after a very lengthy discussion with Chelsea, and her daughter, Rosie, Chelsea voices that she absolutely does not desire renal replacement Rx, i.e. Dialysis, or CPR , if either were to become necessary. I think that this is very reasonable, for the circumstances, as I doubt she would be able to accommodate the stringent lifestyle, fluid restriction and diet . 4. No specific renal F/U is made at this time, but will review her alb in one week, and be available if questions. : Juan Mtz MD, [facility] documented in this e ncounter Plan of Treatment Not on filedocumented as of this encounter Procedures + +--------+ + + + | Procedure Name | Priori | Date/Time | Associated Diagnosis | Comments | | | ty | | | | + +--------+ + + + | EXTERNAL LAB: BUN | Routin | 02/17/2019 | | Results for this | | | e | | | procedure are in the | | | | | | results section. | + +--------+ + + + | EXTERNAL LAB: | Routin | 02/17/2019 | | Results for this | | GLUCOSE | e | | | procedure are in the | | | | | | results section. | + +--------+ + + + | EXTERNAL LAB: | Routin | 02/17/2019 | | Results for this | | PHOSPHORUS | e | | | procedure are in the | | | | | | results section. | + +--------+ + + + | EXTERNAL LAB: | Routin | 02/17/2019 | | Results for this | | MAGNESIUM | e | | | procedure are in the | | | | | | results section. | + +--------+ + + + | EXTERNAL LAB: | Routin | 02/17/2019 | | Results for this | | CALCIUM | e | | | procedure are in the | | | | | | results section. | + +--------+ + + + | EXTERNAL LAB: CARBON | Routin | 02/17/2019 | | Results for this | | DIOXIDE | e | | | procedure are in the | | | | | | results section. | + +--------+ + + + | EXTERNAL LAB: | Routin | 02/17/2019 | | Results for this | | CHLORIDE | e | | | procedure are in the | | | | | | results section. | + +--------+ + + + | EXTERNAL LAB: | Routin | 02/17/2019 | | | | CHLORIDE | e | | | | + +--------+ + + + | EXTERNAL LAB: | Routin | 02/17/2019 | | Results for this | | POTASSIUM | e | | | procedure are in the | | | | | | results section. | + +--------+ + + + | EXTERNAL LAB: SODIUM | Routin | 02/17/2019 | | Results for this | | | e | | | procedure are in the | | | | | | results section. | + +--------+ + + + | EXTERNAL LAB: | Routin | 02/17/2019 | | Results for this | | VITAMIN D, | e | | | procedure are in the | | 25-HYDROXY | | | | results section. | + +--------+ + + + | EXTERNAL LAB: CBC | Routin | 02/17/2019 | | Results for this | | | e | | | procedure are in the | | | | | | results section. | + +--------+ + + + | EXTERNAL LAB: CBC | Routin | 02/17/2019 | | Results for this | | | e | | | procedure are in the | | | | | | results section. | + +--------+ + + + | EXTERNAL LAB: | Routin | 02/17/2019 | | Results for this | | CREATININE | e | | | procedure are in the | | | | | | results section. | + +--------+ + + + | EXTERNAL LAB: | Routin | 02/17/2019 | | Results for this | | HEMOGLOBIN A1C | e | | | procedure are in the | | | | | | results section. | + +--------+ + + + documented in this encounter Results External Lab: CBC (02/17/2019) + +-------+ + + + | Component | Value | Ref Range | Performed | Pathologist | | | | | At | Signature | + +-------+ + + + | MCV | 89.6 | | | | + +-------+ + + + + + | Specimen | + + | | + + External Lab: Vitamin D, 25-Hydroxy (02/17/2019) + +-------+ + + + | Component | Value | Ref Range | Performed | Pathologist | | | | | At | Signature | + +-------+ + + + | Vitamin D, | 12 | ng/ml | | | | 25-Hydroxy, | | | | | | External | | | | | + +-------+ + + + + + | Specimen | + + | Blood | + + External Lab: Hemoglobin A1c (02/17/2019) + +-------+ + + + | Component | Value | Ref Range | Performed | Pathologist | | | | | At | Signature | + +-------+ + + + | Hemoglobin | 8.0 | % | | | | A1c, | | | | | | external | | | | | + +-------+ + + + + + | Specimen | + + | Blood | + + External Lab: Magnesium (02/17/2019) + +-------+ + + + | Component | Value | Ref Range | Performed | Pathologist | | | | | At | Signature | + +-------+ + + + | Magnesium, | 2.2 | | | | | External | | | | | + +-------+ + + + + + | Specimen | + + | | + + External Lab: Phosphorus (02/17/2019) + +-------+ + + + | Component | Value | Ref Range | Performed | Pathologist | | | | | At | Signature | + +-------+ + + + | Phosphorus, | 5.3 | | | | | External | | | | | + +-------+ + + + + + | Specimen | + + | | + + External Lab: Calcium (02/17/2019) + +-------+ + + + | Component | Value | Ref Range | Performed | Pathologist | | | | | At | Signature | + +-------+ + + + | Calcium, | 9.7 | | | | | External | | | | | + +-------+ + + + + + | Specimen | + + | | + + External Lab: Glucose (02/17/2019) + +-------+ + + + | Component | Value | Ref Range | Performed | Pathologist | | | | | At | Signature | + +-------+ + + + | Glucose, | 251 | | | | | External | | | | | + +-------+ + + + + + | Specimen | + + | | + + External Lab: Creatinine (02/17/2019) + +-------+ + + + | Component | Value | Ref Range | Performed | Pathologist | | | | | At | Signature | + +-------+ + + + | Creatinine, | 3.59 | | | | | External | | | | | + +-------+ + + + | eGFR, | 12 | ml/min. | | | | External | | | | | + +-------+ + + + + + | Specimen | + + | Blood | + + External Lab: SONI (02/17/2019) + +-------+ + + + | Component | Value | Ref Range | Performed | Pathologist | | | | | At | Signature | + +-------+ + + + | BUN, | 183 | | | | | External | | | | | + +-------+ + + + + + | Specimen | + + | | + + External Lab: Carbon Dioxide (02/17/2019) + +-------+ + + + | Component | Value | Ref Range | Performed | Pathologist | | | | | At | Signature | + +-------+ + + + | Carbon | 29 | | | | | Dioxide, | | | | | | External | | | | | + +-------+ + + + + + | Specimen | + + | | + + External Lab: Chloride (02/17/2019) + +-------+ + + + | Component | Value | Ref Range | Performed | Pathologist | | | | | At | Signature | + +-------+ + + + | Chloride, | 94 | | | | | External | | | | | + +-------+ + + + + + | Specimen | + + | | + + External Lab: Chloride (02/17/2019) + +-------+ + + + | Component | Value | Ref Range | Performed | Pathologist | | | | | At | Signature | + +-------+ + + + | Chloride, | | | | | | External | | | | | + +-------+ + + + + + | Specimen | + + | | + + External Lab: Potassium (02/17/2019) + +-------+ + + + | Component | Value | Ref Range | Performed | Pathologist | | | | | At | Signature | + +-------+ + + + | Potassium, | 3.8 | | | | | External | | | | | + +-------+ + + + + + | Specimen | + + | | + + External Lab: Sodium (02/17/2019) + +-------+ + + + | Component | Value | Ref Range | Performed | Pathologist | | | | | At | Signature | + +-------+ + + + | Sodium, | 138 | | | | | External | | | | | + +-------+ + + + + + | Specimen | + + | | + + External Lab: CBC (02/17/2019) + +-------+ + + + | Component | Value | Ref Range | Performed | Pathologist | | | | | At | Signature | + +-------+ + + + | WBC, | 9.1 | | | | | External | | | | | + +-------+ + + + | HGB, | 11.5 | | | | | External | | | | | + +-------+ + + + | HCT, | 35.7 | | | | | External | | | | | + +-------+ + + + | PLT, | 178 | K/ul | | | | External | | | | | + +-------+ + + + + + | Specimen | + + | | + + documented in this encounter Visit Diagnoses + + | Diagnosis | + + | Chronic kidney disease, stage IV (severe) (HCC) - Primary Chronic kidney disease, | | Stage IV (severe) | + + | CHF (congestive heart failure), NYHA class III, acute on chronic, diastolic (HCC) | + + | Cor pulmonale (chronic) (HCC) | + + | Type 2 DM with CKD stage 4 and hypertension (HCC) | + + documented in this encounter
--- OUTSIDE RECORDS SUMMARY | ~2019-02-18 | XMS | Encounter Summary ---
Demographics + + + | Address | [address] | | | [place] [address] | + + + | Home Phone | | + + + | Preferred Language | Unknown | + + + | Marital Status | | + + + | Congregational Affiliation | 1076 | + + + | Race | Unknown | + + + | Ethnic Group | Unknown | + + + Author + + + | Author | [facility] | | | and [place] | + + + | Organization | [facility] | | | [...] Team Providers + +------+ + | Care Railroad Track Repair Supervisor Name | Role | Phone | [...] | disease, | [address] | [place], [place] | | | | | unspecified | [address] [place] [address] [place] | | | | | CKD stage | [place] | [place] | | | | | | [address] | [address] Phone: | | | | | | Phone: | [phone] | | | | | | [phone] | Fax: | | | | | | Fax: | [phone] | | | | | | [phone] | | + + + + + [...] | | [address] | [place], [place] [address] | (severe) (HCC) | | | | [place], [place] | [place] | (Primary Dx); CHF | | | | [address] | [address] | (congestive heart | | | | [phone] | | failure), NYHA class | | | | | | III, acute on | | | | | | chronic, diastolic | | | | | | ([facility]); Cor pulmonale | | | | | | (chronic) ([facility]); | | | | | | Type 2 DM with CKD | | | | | | stage 4 and | | | | | | hypertension ([facility]) | +--------+ + [...] she has been [facility] to an [facility]. She appears to be under a more [...] n ranjeet, the U.[place]. President, and [facility]. After a detailed discussion, she volunt eers [...] MGEX 2.2 02/17/2019 PTHEX 185.4 (A) 12/06/2018 [id number] 8.0 02/17/2019 Lab Results Component Value Date [...] questions. : Juan Mtz MD, [facility] documented in this [...]
--- OUTSIDE RECORDS SUMMARY | ~2019-02-18 | XMS | Clinical Summary ---
Demographics + + + | Address | [address] | | | [place] [address] | + + + | Home Phone | | + + + | Preferred Language | Unknown | + + + | Marital Status | | + + + | Restoration Affiliation | 1076 | + + + | Race | Unknown | + + + | Ethnic Group | Unknown | + + + Author + + + | Author | [facility] | | | and [place] | + + + | Organization | [facility] | | [...] Team Providers + +------+ + | Care Oracle Applications Analyst Name | Role | Phone | + +------+ + | Juan Mtz MD | PP | | + +------+ + Allergies + + + + + + | Active Allergy | Reactions | Severity | Noted | Comments | | | | | Date | | + + + + + + | Sulfa Antibiotics | Rash | Low | 08/13/20 | | | | | | 15 | | + + + + + + Medications + + + +---------+------+------+-------+ | Medication | Sig | Dispensed | Refills | Star | End | Statu | | | | | | t | Date | s | | | | | | Date | | | + + + +---------+------+------+-------+ | gabapentin | Take 200 mg by mouth | | 0 | | | Activ | | (NEURONTIN) 100 mg | 3 times daily. | | | | | e | | capsule | | | | | | | + + + +---------+------+------+-------+ | metOLazone | Take 5 mg by mouth | | 0 | | | Activ | | (ZAROXOLYN) 5 MG | Daily. | | | | | e | | tablet | | | | | | | + + + +---------+------+------+-------+ | levothyroxine | Take 150 mcg by | | 0 | | | Activ | | (SYNTHROID) 150 mcg | mouth every morning | | | | | e | | tablet | (before breakfast). | | | | | | + + + +---------+------+------+-------+ | losartan (COZAAR) | Take 1 tablet by | | 0 | 11/22 | | Activ | | 50 mg | mouth Daily. | | | 820 | | e | | tabletIndications: | | | | 19 | | | | Chronic kidney | | | | | | | | disease, stage IV | | | | | | | | (severe) (HCC) | | | | | | | + + + +---------+------+------+-------+ | torsemide | Take 5 tablets by | 200 | 11 | 11/22 | | Activ | | (DEMADEX) 20 mg | mouth 2 times daily. | tablet | | 8/20 | | e | | tablet | | | | 19 | | | + + + +---------+------+------+-------+ | insulin aspart | Inject 2-12 Units | | 0 | | | Activ | | (NOVOLOG) 100 | under the skin 3 | | | | | e | | units/mL injection | times daily (before | | | | | | | | meals). | | | | | | + + + +---------+------+------+-------+ | insulin glargine | Inject 36 Units | 1 vial | 0 | 04/3 | | Activ | | (LANTUS) 100 | under the skin | | | 0/20 | | e | | units/mL injection | nightly. | | | 19 | | | | (vial) | | | | | | | + + + +---------+------+------+-------+ | | Take 1 tablet by | 12 | 0 | 04/3 | 05/0 | Activ | | HYDROcodone-acetamin | mouth every 8 hours | tablet | | 0/20 | 3/20 | e | | ophen (NORCO) 5-325 | as needed for Pain | | | 19 | 19 | | | mg per tablet | for up to 3 days. | | | | | | + + + +---------+------+------+-------+ | insulin glargine | Inject 30 Units | 1 vial | 0 | 02/1 | 04/3 | Disco | | (LANTUS) 100 | under the skin | | | 8/20 | 0/20 | ntinu | | units/mL injection | nightly. | | | 19 | 19 | ed | | (vial) | | | | | | | + + + +---------+------+------+-------+ Active Problems + + + | Problem | Noted Date | + + + | CHF (congestive heart failure), NYHA class III, acute on chronic, | 12/09/2018 | | diastolic | | + + + | Chronic kidney disease, stage IV (severe) | 12/09/2018 | + + + | Type 2 DM with CKD stage 4 and hypertension | 12/09/2018 | + + + Encounters +--------+ + + + + | Date | Type | Specialty | Care Team | Description | +--------+ + + + + | 02/17/ | Off-Site | | Ghassan Lombardo | Chronic kidney | | 2018 | Visit | | M, DO | disease, stage IV | | | | | | (severe) (HCC) | | | | | | (Primary Dx); CHF | | | | | | (congestive heart | | | | | | failure), NYHA class | | | | | | III, acute on | | | | | | chronic, diastolic | | | | | | (HCC); Cor pulmonale | | | | | | (chronic) (HCC); | | | | | | Type 2 DM with CKD | | | | | | stage 4 and | | | | | | hypertension (HCC) | +--------+ + + + + | 01/16/ | Orders Only | | Elen, | Chronic kidney | | 2018 | | | ROSEMARY Evangelista | disease, stage IV | | | | | | (severe) (HCC) | | | | | | (Primary Dx); Type 2 | | | | | | DM with CKD stage 4 | | | | | | and hypertension | | | | | | (HCC) | +--------+ + + + + | 12/09/ | Off-Site | | Ghassan Lombardo | CHF (congestive | | 2018 | Visit | | M, DO | heart failure), NYHA | | | | | | class III, acute on | | | | | | chronic, diastolic | | | | | | (HCC) (Primary Dx); | | | | | | Chronic kidney | | | | | | disease, stage IV | | | | | | (severe) (HCC); Type | | | | | | 2 DM with CKD stage | | | | | | 4 and hypertension | | | | | | (HCC); Anemia of | | | | | | chronic renal | | | | | | failure, stage 4 | | | | | | (severe) (HCC) | +--------+ + + + + | 12/09/ | Abstract | | Ghassan Lombardo | | | 2018 | | | M, DO | | +--------+ + + + + | 12/03/ | Orders Only | | Ghassan Lombardo | Chronic kidney | | 2019 | | | M, DO | disease, stage IV | | | | | | (severe) (HCC) | | | | | | (Primary Dx) | +--------+ + + + + from Last 3 Months Social History + +-------+ +--------+------+ | Tobacco [...] recent travel history available. | + + Last Filed Vital Signs + + + + | Vital Sign | Reading | Time Taken | + + + + | Blood Pressure | 112/45 | 02/17/20194 PDT | + + + + | Pulse | 80 | 09/23/2018 1723 PST | + + + + | Temperature | 35.6 C (96 F) | 02/17/20194 PDT | + + + + | Respiratory Rate | 20 | 09/16/2018 1332 PST | + + + + | Oxygen Saturation | 97% | 09/16/20181331 PST | + + + + | Inhaled Oxygen | - | - | | Concentration | | | + + + + | Weight | 111.2 kg (245 lb 2.4 | 02/17/20194 PDT | | | oz) | | + + + + | Height | 157.5 cm (5' 2") | 09/16/20181331 PST | + + + + | Body Mass Index | 44.84 | 09/16/20181331 PST | + + + + Plan of Treatment + + + + + | Health Maintenance | Due Date | Last Done | Comments | + + + + + | Diabetic Eye Exam | | | | | | 2 | | | + + + + + | Diabetic Foot Exam | | | | | | 2 | | | + + + + + | Vaccine: | | | | | Dtap/Tdap/Td (1 - | 3 | | | | Tdap) | | | | + + + + + | Vaccine: Zoster (1 | | | | | of 2) | 4 | | | + + + + + | Adult Annual | | | | | Wellness Visit | 8 | | | + + + + + | Hemoglobin A1c | | 07/22/2018, 07/31/2017, | | | Screening | 9 | 01/29/2017 | | + + + + + | Vaccine: | Completed | 01/31/2017, 08/10/2015, | | | Pneumococcal 65+ | | 08/06/2006 | | | High/Highest Risk | | | | + + + + + | Vaccine: Influenza | Completed | 07/23/2018, 07/31/2017, | | | | | 08/23/2016, Additional history | | | | | exists | | + + + + + Procedures + +--------+ + + + | [...] section. | + +--------+ + + + from Last 3 Months Results External Lab: BUN (02/17/2019)Only the most recent of 2 results within the time period is i ncluded. + +-------+ + + + | Component [...] | | + + External Lab: Glucose (02/17/2019)Only the most recent of 2 results within the time period is included. + +-------+ + + + | Component [...] + | | + + External Lab: Magnesium (02/17/2019) [...] | | + + External Lab: Calcium (02/17/2019)Only the most recent of 2 results within the time period is included. + +-------+ + + + | Component [...] | + + External Lab: Carbon Dioxide (02/17/2019)Only the most recent of 2 results within the time period is included. + +-------+ + + + | Component [...] | | + + External Lab: Chloride (02/17/2019)Only the most recent of 3 results within the time period is included. + +-------+ + + + | Component [...] | | + + External Lab: Potassium (02/17/2019)Only the most recent of 2 results within the time perio d is included. + +-------+ + + + | Component [...] | | + + External Lab: Sodium (02/17/2019)Only the most recent of 2 results within the time period i s included. + +-------+ + + + | Component [...] | Blood | + + External Lab: CBC (02/17/2019)Only the most recent of 3 results within the time period is i ncluded. + +-------+ + + + | Component | Value | Ref Range | Performed | Pathologist | | | | | At | Signature | + +-------+ + + + | MCV | 89.6 | | | | + +-------+ + + + + + | Specimen | + + | | + + External Lab: Creatinine (02/17/2019)Only the most recent of 2 results within the time humberto od is included. + +-------+ + + + | Component [...] | Blood | + + External Lab: ALT (12/06/2018) + [...] | | | + +---------+ + + LABS - EXTERNAL SCAN (12/06/2018 0:00 PST) + + + | Narrative | Performed At | + + + | Ordered by an | | | unspecified provider. | | + + + Protein/Creatinine Ratio, Urine (12/06/2018) + + + [...] + + | Urine | + + from Last 3 Months Insurance + +--------+ +--------+ + +--------+ | Payer | Benefi | Subscriber | Effect | Phone | Address | Type | | | t Plan | ID | marie | | | | | | / | | Dates | | | | | | Group | | | | | | + +--------+ +--------+ + +--------+ | MEDICARE | MEDICA | [id number] | 12/20/18 | [phone] | | Medica | | | RE | | 99-Pre | 5 | | re | | | PART A | | sent | | | | | | AND B | | | | | | + +--------+ +--------+ + +--------+ | MODA | MODA | [id number] | 10/22/19 | [phone] | [address] | Indemn | | | HEALTH | | 14-Pre | 9 | [id number] | ity | | | MDCR | | sent | | [place], | | | | [place] | | | | [place] [address] | | + +--------+ +--------+ + +--------+ | [employer] HE[employer] PLAN | MODA | [id number] | 10/22/19 | [phone] | | Medica | | MEDICAID HMO | HEALTH | | 19-Pre | 1 | | id | | | MDCD | | sent | | | | | [place] | | | | | | + +--------+ +--------+ + +--------+ + +--------+ +--------+ + + | Guarantor Name | Accoun | Relation to | Date | Phone | Billing Address | | | t Type | Patient | of | | | | | | | | | | + +--------+ +--------+ + + | Chelsea Isaac Marva | Person | Self | [birth year] | [address] | | | al/Fam | | 1935 | [phone] | [place] | | | summer | | | 5 (Home) | [address] | + +--------+ +--------+ + + Advance Directives Patient has advance care planning documents, and code status on file. For more information, please contact:[facility] [place] [address] + + + + + | Code Status | Date | Date | Comments | | | Activated | Inactivated | | + + + + + | ANAMARIA (No | 02/18/2019 | | | | Code) | 10:16 | | | + + + + +
--- OUTSIDE RECORDS SUMMARY | ~2019-02-18 | XMS | Encounter Summary ---
Demographics + + + | Address | [address] | | | [place] [address] | + + + | Home Phone | | + + + | Preferred Language | Unknown | + + + | Marital Status | | + + + | Restorationism Affiliation | 1076 | + + + | Race | Unknown | + + + | Ethnic Group | Unknown | + + + Author + + + | Author | [facility] | + + + | Organization | [email or web address] | + + + | Address [...] Team Providers + +------+ + | Care Lawn Care Technician Name | Role | Phone | [...] | | | | | [place] [address] | | | | | | [phone] | | | +--------+ + + + [...]
--- OUTSIDE RECORDS SUMMARY | ~2019-02-18 | XMS | Clinical Summary ---
Demographics + + + | Address | [address] | | | [place] [address] | + + + | Home Phone | | + + + | Preferred Language | Unknown | + + + | Marital Status | | + + + | Mandaeism Affiliation | 1076 | + + + | Race | Unknown | + + + | Ethnic Group | Unknown | + + + Author + + + | Author | [facility] | | | and [place] | + + + | Organization | [facility] | | | [...] Team Providers + +------+ + | Care Child Care Provider Name | Role | Phone | + [...] + +--------+ | MEDICARE | MEDICA | [id number] | 12/20/18 | [phone] | | Medica | | | RE | | 99-Pre | 5 | | re | | | PART A | | sent | | | | | | AND B | | | | | | + +--------+ +--------+ + +--------+ | MODA | MODA | [id number] | 10/22/19 | [phone] | [address] | Indemn | | | HEALTH | | 14-Pre | 9 | [phone] | ity | | | MDCR | | sent | | [place], | | | | [place] | | | | [place] [address] | | + +--------+ +--------+ + +--------+ | MOD[employer] HEALTH PLAN | MODA | [id number] | 10/22/19 | [phone] | | Medica | | MEDICAID HMO [...] Person | Self | [birth year] | | [address] | | | al/Fam | | 1935 | [phone] | [place] | | | summer | | | 5 (Home) | [address] | + +--------+ +--------+ + + Advance Directives Patient has advance care planning documents, and code status on file. For more information, please contact:[facility] [place] [address] + + + + + | Code Status | Date | Date | Comments | | | Activated | Inactivated | | + + + + + | ANAMARIA (No | 02/18/2019 | | | | Code) | 10:16 | | | + + + + +
--- OUTSIDE RECORDS SUMMARY | ~2019-02-18 | XMS | Clinical Summary ---
Demographics + + + | Address | [address] | | | [place] [address] | + + + | Home Phone | | + + + | Preferred Language | Unknown | + + + | Marital Status | | + + + | Mu-Ism Affiliation | 1076 | + + + | Race | Unknown | + + + | Ethnic Group | Unknown | + + + Author + + + | Author | [facility] | + + + | Organization | [facility] | + + + | Address [...] Team Providers + +------+ + | Care Editor Managing Director Name | Role | Phone | + [...] DM type 2 (diabetes mellitus, type 2) ([facility]) | 12/23/2017 | + + + | Obesity | 12/23/2017 | + + + | Hypothyroidism | 12/23/2017 | + + + | CKD (chronic kidney disease) stage 3, GFR 30-59 ml/min ([facility]) | 12/23/2017 | + + + | [...] +------+-------+ + | MEDICARE | MEDICA | [id number] | | | [address] | | | RE | | | | [place] [address] | | | IP-OP | | | | | + +--------+ +------+-------+ + | ODS HEALTH PLAN | ODS | [id number] | | | | | | HEALTH | | | | | | | PLAN | | | | | + +--------+ +------+-------+ + | MEDICAID | MEDICA | [id number] | | | [address] | | | [place] | | | | [place] | | | [place] | | | | [address] | + +--------+ +------+-------+ + + +--------+ +--------+ + + | Guarantor Name | Accoun | Relation to | Date | Phone | Billing Address | | | t Type | Patient | of | | | | | | | | | | + +--------+ +--------+ + + | CHELSEA ISAAC | Person | Self [birth year] | Home: | [address] | | | al/Fam | | 1935 | [phone] [place] | | | summer | | | [phone] | [address] | + +--------+ +--------+ + +
--- OUTSIDE RECORDS SUMMARY | ~2019-02-18 | XMS | Encounter Summary ---
Demographics + + + | Address | [address] | | | [place] [address] | + + + | Home Phone | | + + + | Preferred Language | Unknown | + + + | Marital Status | | + + + | Scientologist Affiliation | 1076 | + + + | Race | Unknown | + + + | Ethnic Group | Unknown | + + + Author + + + | Author | [facility] | + + + | Organization | [facility] | + + + | Address [...] Providers + +------+ + | Care Senior Quality Control Technician Name | Role | Phone | [...] | | | | | [place] [address] | | | | | | [phone] | | | +--------+ + + + [...]
--- OUTSIDE RECORDS SUMMARY | ~2019-02-18 | XMS | Encounter Summary ---
Demographics + + + | Address | [address] | | | [place] [address] | + + + | Home Phone | | + + + | Preferred Language | Unknown | + + + | Marital Status | | + + + | Jainism Affiliation | 1076 | + + + | Race | Unknown | + + + | Ethnic Group | Unknown | + + + Author + + + | Author | [facility] | | | and [place] | + + + | Organization | [facility] | | | and [...] Team Providers + +------+ + | Care Toll Collector Name | Role | Phone | + [...] | | [address] | [address] | (severe) (HCC) | | | | [place], [place] | [place], [place] | (Primary Dx) | | | | [address] | [address] | | | | | [phone] | | | +--------+ + + + [...]
[~2019-02-18 19:05] MED LIST changes: +FUROSEMIDE80 MG PO; +GLIPIZIDE10 MG PO; +LEVOTHYROXINE150 MCG PO; +LIDOCAINE-PRILO30 GM TOP; +LOSARTAN POTASS50 MG PO; +MAPAP500 M1 PO; +NOVOLOG FL100 UNIT/1 SUB-Q; +REPAGLINIDE2 MG PO; +TORSEMIDE20 MG PO; +VANICREAM453 GM TOP
--- OUTSIDE RECORDS SUMMARY | 2019-02-18 19:08 | XMS ---
PreManage Notification: ABEL PANDA Security Climatology Teacher Events No recent Security Events currently on file CRITERIA MET - [facility] [place] [facility] CARE PROVIDERS Merle Ji Distribution Tech/Sustainable Agriculture Specialist 01/03/2019-Current PHONE: [phone] Merle Ji Distribution Tech/Sustainable Agriculture Specialist 06/22/2016-Current PHONE: [phone] [facility] 11/11/2018-Current ELAINA PHONE: [phone] Merle Ji Primary Care 01/03/2019-Current PHONE: [phone] DR АННА SMITH Primary Care 03/22/2018-Current PHONE: [phone] Alex Up MD Primary Care Current PHONE: Unknown del Bermudez or Analytical Tech Current PHONE: Unknown Dennys UP Current PHONE: Unknown Felicia has no Care Guidelines for this patient. Care History Medical/Surgical 11/11/2018 [facility] - Patient is currently established with [facility]. If patient is seen in the ED during business hours. Please contact CHWs at [facility]. Care Recommendation: This patient has had 5 or more Emergency Department visits in the last 12 months.\T\nbsp; Patient requires education on the scope and purpose of the ED as an acute care provider not a Primary Care Provider and should not be utilized for chronic conditions.\T\nbsp; These are guidelines and the provider should exercise clinical judgment when providing care. E.D. VISIT COUNT (12 MO.) [address] [facility] NOTE: Visits indicate total known visits. ED/UCC VISIT TRACKING (12 MO.) 02/18/2019 19:05 [facility] [place] TYPE: Emergency COMPLAINT: - WE[facility]NESS [facility] DIAGNOSES: - Edema, unspecified - Chronic kidney disease, unspecified - Pruritus, unspecified - leg pain, itching - Leg Pain 09/01/2018 12:16 [facility] [place] TYPE: Emergency COMPLAINT: - BILAT LEG ITCHINESS DIAGNOSES: - Allergy status to sulfonamides status - Allergic contact dermatitis, unspecified cause - Heart failure, unspecified - Major depressive disorder, single episode, unspecified - Anxiety disorder, unspecified - Hypothyroidism, unspecified - Other vermin exterminator (current) drug therapy - Type 2 diabetes mellitus without complications - Hypertensive heart disease with heart failure - Rash and other nonspecific skin eruption 07/05/2018 16:46 [facility] [place] TYPE: Emergency COMPLAINT: - POSS GENITAL INFECTION DIAGNOSES: - Candidiasis of skin and nail - Type 2 diabetes mellitus without complications - Dermatitis, unspecified - Other vermin exterminator (current) drug therapy - Pelvic and perineal pain - Allergy status to sulfonamides status - Essential (primary) hypertension INPATIENT VISIT TRACKING (12 MO.) 10/27/2018 13:[address] [facility] [place] TYPE: Medical Surgical COMPLAINT: - DECOMPENSATED HEART FAILURE DIAGNOSES: - senior care (current) use of opiate analgesic - Body mass index (BMI) 45.0-49.9, adult - senior care (current) use of insulin - Type 2 diabetes mellitus with diabetic chronic kidney disease - laborer marine terminal (current) use of opiate analgesic - Type 2 diabetes mellitus with diabetic polyneuropathy - Non-pressure chronic ulcer of unspecified part of right lower leg with unspecified severity - Type 2 diabetes mellitus with hyperglycemia - Chronic kidney disease, stage 4 (severe) - Morbid (severe) obesity due to excess calories - Non-pressure chronic ulcer of unspecified part of right lower leg with unspecified severity - Hypothyroidism, unspecified - senior care (current) use of insulin - Morbid (severe) obesity due to excess calories - Acute on chronic diastolic (congestive) heart failure - Allergy status to sulfonamides status - Venous insufficiency (chronic) (peripheral) - Other long-term (current) drug therapy - Type 2 diabetes mellitus with hyperglycemia - Body mass index (BMI) 45.0-49.9, adult - Chronic kidney disease, stage 4 (severe) - Other vermin exterminator (current) drug therapy - Hypertensive heart and chronic kidney disease with heart failure and stage 1 through stage 4 chronic kidney disease, or unspecified chronic kidney disease - Allergy status to sulfonamides status - Venous insufficiency (chronic) (peripheral) - Hypothyroidism, unspecified - Type 2 diabetes mellitus with diabetic chronic kidney disease - Hypertensive heart and chronic kidney disease with heart failure and stage 1 through stage 4 chronic kidney disease, or unspecified chronic kidney disease [email or web address]
[2019-02-18] MEDS ORDERED: NEURONTIN100 MG PO (19:16)
--- NOTE | 2019-02-19 23:19 | EKG ---
[facility] [address] [place] [address] Signed Sinus tachycardia with 1st degree AV block Left anterior fascicular block Possible Lateral infarct (cited on or before 08-DEC-2017) Abnormal ECG When compared with ECG of 23-JAN-2018 11:15, Vent. rate has increased BY 50 BPM Left anterior fascicular block is now present Criteria for Inferior infarct are no longer present Questionable change in initial forces of Anterolateral leads QT has lengthened Confirmed by ELLY VILLA DO ([id number]) on 02/19/2019 11:19:26 PM Electronically Signed By: ELLY VILLA DO 02/19/19 2319 PATIENT NAME: ABEL PANDA Electrocardiogram DATE OF : 33 PHYSICIAN: ELLY VILLA DO REPORT #: [id number] REPORT IS CONFIDENTIAL AND NOT TO BE RELEASED WITHOUT AUTHORIZATION
== END 2019-02-18 22:08 | disposition short-term general hospital (02) ==
LOC: ED 19:05
DX: A41.9 Sepsis, unspecified organism (principal); E11.22 Type 2 diabetes mellitus with diabetic chronic kidney disease; I13.0 Hypertensive heart and chronic kidney disease with heart failure and stage 1 through stage 4 chronic kidney disease, or unspecified chronic kidney disease; N39.0 Urinary tract infection, site not specified; R65.20 Severe sepsis without septic shock; N18.9 Chronic kidney disease, unspecified; E03.9 Hypothyroidism, unspecified; Z88.2 Allergy status to sulfonamides; Z88.8 Allergy status to other drugs, medicaments and biological substances; Z79.899 Other long term (current) drug therapy; Z79.4 Long term (current) use of insulin
CPT/HCPCS: 51702; 71045; 80053; 81001; 83605; 83880; 84484; 85025; 85379; 93005; 93010; 99285-25; J0696; J3010; J7030